=== PATIENT | male | born 1945 | race Caucasian/White ===

== ENCOUNTER 2018-12-25 12:02 | Observation (INO) ==
[2018-12-25] MEDS ORDERED: *HR* Propofol 200 MG/20 ML VIAL IVP ONE (12:47)
[2018-12-25] MEDS ORDERED: Lidocaine -MPF 2% 2 ML VIAL ONE (13:06)
--- NOTE | 2018-12-25 15:13 | Internal Med History&Physical ---
Date of Encounter: 12/25/18 Time of Encounter: 16:00 Internal Medicine - H&P: HPI History of present illness: Mr. Adair is a 73 year old male with history of ESRD on dialysis M,W,F, peptic ulcer disease, GERD, hypertension presents as a transfer from [facility] ED for acute anemia workup. Patient was sent to [facility] from dialysis as he had hemoglobin of 6.5 this AM, and patient baseline last week was 13.0. Patient denies any acute bleeding episodes. He did have a brief episode of SOB a few d ays ago. Denies chest pain, dizziness, melena, hematochezia, hematemesis, abdominal pain, diarrhea. He did have a two day episode of light pink hematuria that has since resolved. In [facility] ED, Hemoglobin was low at 6.9 with MCV normal at 95.6, INR 1.06, he was hemodynamically stable. FOBT was positive. Urinalysis was positive for trace hemoglobin, large leukocyte esterase, positive for nitrites, with 2+ bacteria. A high-sensitive troponin was negative. EKG did not show any ST/T wave changes. He was given 1 unit PRBC, IV Protonix, and also a dose of Rocephin. Past Med Surg Social Fam HX - Past Medical History Medical history: dialysis, GERD, hypertension Psychiatric history: no psych history - Social History Smoking Status: Former smoker Smokeless Tobacco Status: No Alcohol use: none Drug use: none - Family History Mother Hx Family Cancer: Yes Hx Family Endocrine Disorder: Yes Sister Hx Family Cardiac Disorders: Yes Hx Family Endocrine Disorder: Yes Internal Medicine - H&P: Meds Allergy/AdvReac Type Severity Reaction Status Date / Time No Known Allergies Allergy Verified 12/25/18 15:50 All Systems PM: A 10-system review of systems was performed and is negative for pertinent findings except as documented above in the HPI. - Constitutional Constitutional: fatigue, no anorexia, no excessive sweating, no night sweats, no weight loss - EENT Eyes: no blurry vision Nose, mouth and throat: no epistaxis, no mouth lesions, no neck mass - Cardiovascular Cardiovascular ROS IM: no chest pain, no lightheadedness, no palpitations - Respiratory Respiratory: dyspnea, no hemoptysis, no wheezing - Gastrointestinal Gastrointestinal: no change in stool character, no coffee ground emesis - Genitourinary Genitourinary ROS male: hematuria (2 days, light pink) - Musculoskeletal Musculoskeletal ROS IM: no arthralgias, no atrophy, no deformity - Integumentary Integumentary IM: no non-healing lesions, no rash, no skin ulcer - Neurological Neurological ROS: no tingling, no tremor(s), no weakness - Psychiatric Psychiatric: no confusion, no depression - Hematologic/Lymphatic Hematologic/Lymphatic: no easy bleeding - Allergic/Immunologic Allergic/Immunologic: no tongue swelling - Constitutional Vitals: Temp Pulse Resp BP Pulse Ox 97.9 F 79 16 165/77 97 12/25/18 13:39 12/25/18 13:39 12/25/18 13:39 12/25/18 13:39 12/25/18 13:39 General appearance: Present: A&O X 3 Exam: . - Head Head exam: Present: atraumatic, normocephalic - Eye Eye exam: Present: PERRL, conjuntiva pink, sclera anicteric Pupils: Present: PERRL - Neck Neck exam general surgery: Present: supple, trachea midline. Absent: lymphadenopathy - Respiratory Respiratory exam: Absent: accessory muscle use, rales, rhonchi, wheezes Additional comments: course breath sounds at bases. - Cardiovascular Cardiovascular exam: Present: gallop, RRR, +S1, +S2. Absent: diastolic murmur, rubs, systolic murmur - GI/Abdominal GI/Abdominal exam: Present: normal bowel sounds, soft, no peritoneal signs. Absent: distended, tenderness - Extremities Exam Extremities exam: Present: pedal edema, warm, radial pulses palpable and symmetrical. Absent: calf tenderness, cyanotic - Neurological Exam Neurological exam: Present: CN II-XII intact, oriented X3, no focal deficits. Absent: pronater drift, facial droop, speech deficit - Skin Skin exam: Present: dry, intact Internal Med - H&P Results - Labs CBC & Chem 7: 12/25/18 15:57 - Assessment and Plan (1) Acute blood loss anemia Current Visit: Yes Status: Acute Assessment and plan: Suspect upper GI bleed. He denies any change in stools but report given for transfer is that patient had tarry stools. Fecal occult test positive prior to arrival. Currently symptom free. Received 1 unit PRBC at [facility] prior to transfer. Hemodynamicaly stable. Cycle H&H Consult GI Protonix drip. (2) End stage renal disease Current Visit: Yes Status: Acute Assessment and plan: Patient receives dialysis M,W,F. Missed today's dose because of acute anemia. Now patient H&H appears more stable after 1 unit PRBC. Currently 8.1 (was 6.3 at dialysis). Breath sounds coarse, will like to obtain chest x-ray to better see if there is fluid overload picture while patient might need IV fluids. Consult Nephrology. Diuresis if needed for fluid overload until next dialysis session. Patient does make urine and has a chronic cath. (3) Urinary tract infection Current Visit: Yes Status: Acute Assessment and plan: As seen in [facility] labs. Had episode of light hematuria few days ago now reso lved. Patient has chronic Tierney in, known ESRD. Will continue Rocephin. Qualifiers: Urinary tract infection type: site unspecified Hematuria presence: with hematuria Qualified Code(s): N39.0 - Urinary tract infection, site not specified; R31.9 - Hematuria, unspecified (4) Hypertension Current Visit: Yes Status: Acute Assessment and plan: Resume home medications if endoscopy is negative. IV antihypertensives for now. Qualifiers: Hypertension type: essential hypertension Qualified Code(s): I10 - Essential (primary) hypertension (5) GERD (gastroesophageal reflux disease) Current Visit: Yes Status: Acute Qualifiers: Esophagitis presence: esophagitis presence not specified Qualified Code(s): K21.9 - Gastro-esophageal reflux disease without esophagitis (6) DVT prophylaxis Current Visit: Yes Status: Acute Assessment and plan: SCDs - Time Spent With Patient Total time spent is greater than 50% in coordination of care (as documented) at patient's floor/unit and/or counseling patient:
[2018-12-25] MEDS ORDERED: Naloxone 0.4 MG/ML INJ IVP PRN (15:14)
[2018-12-25 16:17] LABS: Basophils % 0.4 %; Eosinophils # 0.1 K/mcL (0.0-0.6); Eosinophils % 1.9 %; Hematocrit 24.5 % (37.5-50.1); Hemoglobin 8.1 g/dL (12.9-16.9); Immature Granulocytes % 1.2 % (0-4); Lymphocytes % 21.5 %; Mean Corpuscular HGB Conc 33.1 g/dL (31.6-35.5); Mean Corpuscular Volume 93.9 fL (83.0-100.0); Monocytes # 0.6 K/mcL (0.0-1.3); Monocytes % 12.8 %; Platelet Count 154 K/mcL (140-400); Red Blood Count 2.61 M/mcL (4.19-5.50); Segmented Neutrophils % 62.2 %; White Blood Count 4.8 K/mcL (4.3-11.1)
[2018-12-25 16:23] LABS: INR 1.1; Prothrombin Time 12.5 Seconds (9.4-12.1)
[2018-12-25 17:01] LABS: Calcium 9.1 mg/dL (8.6-10.3)
[2018-12-25 17:02] LABS: Magnesium 1.9 mg/dL (1.6-2.6); Phosphorous 4.4 mg/dL (2.7-4.5)
[2018-12-25] MEDS: Pantoprazole 40 MG in 0.9 % Sodium Chloride Mini Bag 100 ML IVC SCH (18:48)
[2018-12-25 19:45] LABS: Hepatitis B Surface Antibody 26.83 mIU/mL
[2018-12-25 19:57] LABS: Hepatitis B Surface Antigen Nonreactive (Nonreactive)
[2018-12-25] MEDS ORDERED: Ondansetron ODT 4 MG TAB.RAPDIS PO PRN (21:19)
[2018-12-25] MEDS ORDERED: Nitroglycerin 0.4 MG TAB.SUBL SL PRN (21:19)
[2018-12-25 22:08] LABS: Hematocrit 23.6 % (37.5-50.1); Hemoglobin 7.7 g/dL (12.9-16.9)
--- NOTE | 2018-12-25 22:43 | Anesthesia Evaluation PreOp ---
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 Any Significant HX Other Medical History: Renal (dialysis MWF - missed today (Sunday12-25-18) due to acute anemia), Bleeding (episode of hematuria; drastic change in hemaglobin suggestive of bleeding), GERD (peptic ulcer disease), Other (UTI) Anesthesia History: No Prior Anesthetic Complications, Past Anesthesia (fistula placement) Alcohol Use: none Drug use: none Medications and Allergies Calcium Acetate [Phos-LO] 1,334 mg PO TIDWM 12/25/18 [History] Carvedilol [Coreg] 6.25 mg PO BID 12/25/18 [History] Cholecalciferol (D-3) [Vitamin D] 1,000 unit PO DAILY 12/25/18 [History] Clopidogrel [Plavix] 75 mg PO DAILY 12/25/18 [History] Lisinopril [Zestril] 20 mg PO DAILY 12/25/18 [History] Nitroglycerin [Nitrostat] 0.4 mg SL Q5M PRN MDD [id number] CALL 911 12/25/18 [History] Ondansetron HCl [Zofran] 4 mg PO Q4-6H PRN 12/25/18 [History] Simvastatin [Zocor] 40 mg PO HS 12/25/18 [History] Allergy/AdvReac Type Severity Reaction Status Date / Time No Known Allergies Allergy Verified 12/25/18 20:29 - Meds/Allergy Pre-op Review Medications Reviewed: Yes Allergies Reviewed: Yes Beta Blockers on Current Med List: Yes (coreg) Anesthesia Results - Labs 12/25/18 21:35 12/25/18 15:57 - Imaging Chest x-ray: report reviewed (no acute process) Anesthesia Exam Last Vital Signs Temp 98.7 F 12/25/18 20:34 Pulse 73 12/25/18 20:34 Resp 17 12/25/18 20:34 BP 128/60 12/25/18 20:34 Pulse Ox 98 12/25/18 20:34 Weight: 67 kg - HEENT Pupil (Motor): Pupils equal, EOMI Mallampati: II Teeth: Edentulous Oral Opening: Greater than 3 - 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
[2018-12-26] MEDS: Pantoprazole 40 MG in 0.9 % Sodium Chloride Mini Bag 100 ML IVC SCH ×3 (00:01→05:36)
[2018-12-26 04:02] LABS: Basophils % 0.4 %; Eosinophils # 0.1 K/mcL (0.0-0.6); Eosinophils % 2.1 %; Hematocrit 22.8 % (37.5-50.1); Hemoglobin 7.6 g/dL (12.9-16.9); Immature Granulocytes % 0.8 % (0-4); Lymphocytes # 1.2 K/mcL (0.6-4.6); Lymphocytes % 24.7 %; Mean Corpuscular HGB Conc 33.3 g/dL (31.6-35.5); Mean Corpuscular Hemoglobin 30.5 pg (28.0-33.3); Mean Corpuscular Volume 91.6 fL (83.0-100.0); Mean Platelet Volume 10.4 fL (9.4-12.4); Monocytes # 0.7 K/mcL (0.0-1.3); Monocytes % 13.9 %; Neutrophils # 2.8 K/mcL (1.6-8.9); Platelet Count 143 K/mcL (140-400); Red Blood Count 2.49 M/mcL (4.19-5.50); Red Cell Distribution Width 17.2 % (11.5-14.5); Segmented Neutrophils % 58.1 %; White Blood Count 4.8 K/mcL (4.3-11.1)
[2018-12-26 04:19] LABS: Calcium 8.5 mg/dL (8.6-10.3); Potassium 3.7 mEq/L (3.5-5.1)
[2018-12-26] MEDS ORDERED: 0.9 % Sodium Chloride 250 ML IVC PRN (07:13)
[2018-12-26] MEDS ORDERED: 0.9 % Sodium Chloride 1,000 ML PRIME SCH (07:15)
[2018-12-26] MEDS: cefTRIAXone 1,000 MG in Water for inj. (sterile) 20 ML 10 ML IVP SCH (08:32)
[2018-12-26] MEDS: Calcium Acetate 667 MG CAPSULE PO SCH ×3 (08:33→17:18)
[2018-12-26] MEDS: Cholecalciferol (D-3) 1,000 UNIT TABLET PO SCH (08:33)
--- NOTE | 2018-12-26 08:43 | Internal Med Progress Note ---
<Adrianna Dominguez - Last Filed: 12/26/18 17:48> Hospitalist Progress Note - Encounter Date of Encounter: 12/26/18 - Exam Vitals: Temp Pulse Resp BP Pulse Ox 97.7 F 80 18 170/87 98 12/26/18 17:02 12/26/18 15:35 12/26/18 17:02 12/26/18 17:02 12/26/18 15:05 - Assessment and Plan (1) Acute blood loss anemia Current Visit: Yes Status: Acute (2) End stage renal disease Current Visit: Yes Status: Chronic (3) Urinary tract infection Current Visit: Yes Status: Acute (4) Hypertension Current Visit: Yes Status: Chronic (5) GERD (gastroesophageal reflux disease) Current Visit: Yes Status: Acute (6) DVT prophylaxis Current Visit: Yes Status: Acute - Time Spent with Patient Total time spent is greater than 50% in coordination of care (as documented) at patient's floor/unit and/or counseling patient: Internal Medicine: Result - Labs CBC & Chem 7: 12/26/18 10:02 12/26/18 03:48 Labs: Short CBC 12/25/18 12/26/18 12/26/18 Range/Units 21:35 03:48 10:02 WBC 4.8 (4.3-11.1) K/mcL Hgb 7.7 L 7.6 L 8.1 L (12.9-16.9) g/dL Hct 23.6 L 22.8 L 24.4 L (37.5-50.1) % Plt Count 143 (140-400) K/mcL Neutrophils # 2.8 (1.6-8.9) K/mcL BMP 12/26/18 03:48 Sodium 138 Potassium 3.7 Chloride 105 Carbon Dioxide 24 BUN 31 H Creatinine 3.49 H Glucose 87 Calcium 8.5 L - ABG Interpretation ABG results: PT/INR, D-dimer PT 12.5 Seconds (9.4-12.1) H 12/25/18 15:57 - Impressions Impressions Chest X-Ray 12/25/18 17:17 IMPRESSION: No acute process. D/ / Sabas Medina MD / Sabas Medina MD Interpreting Provider: Sabas Medina MD Consult Discharge Plan - Plan Referrals: Nani Calvillo, EMBROIDERY WORKER [Primary Care Provider] - - Attending Attestation I examined this patient and my medical decision-making was reviewed with the Resident Physician. I agree with the documented findings, disposition and treatment plan as described except to the extent set forth below. No acute events. EGD pending. Plan for dialysis today after EGD and give 1 unit PRBC during HD. <Gi Narvaez - Last Filed: 12/26/18 19:59> Hospitalist Progress Note - Encounter Date of Encounter: 12/26/18 Time of Encounter: 08:43 - Subjective Interval History: This is a 73-year-old male with past medical history of ESRD on hemodialysis (MWF), peptic ulcer disease, GERD, hypertension who initially presented has a transfer from [facility] ED due to hematuria for an anemia workup. Patient was seen and examined at bedside this morning. He is currently in no acute distress. Vital signs are stable. Otherwise he denies any chest pain, difficulty breathing, palpitations, wheezing. He has no acute complaints at this time. - Exam Vitals: Temp Pulse Resp BP Pulse Ox 98.3 F 72 18 121/62 97 12/26/18 07:06 12/26/18 07:06 12/26/18 07:06 12/26/18 07:06 12/26/18 07:06 Exam: GEN: Vitals stable. No acute distress. AAOx3 HEENT: Atraumatic, Normocephalic, PERRLA, EOMI NECK: Supple, no lymphadenopathy, no JVD CARDIAC: RRR, s1 and s2 present, no murmurs, rubs, gallops PULM: CTAB, not in respiratory distress, no wheezes, rales, crackles, rhonchi ABD: Soft, non-tender, non-distended, no guarding or rebound tenderness. Bowel sounds present; suprapubic catheter in place EXT: No peripheral edema. No calf tenderness, cyanosis, clubbing NEURO: CN 2-12 grossly intact. No focal neurologic deficits. Follows commands PSYCH: Appropriate mood and affect - Assessment and Plan (1) Acute blood loss anemia Current Visit: Yes Status: Acute Assessment and Plan: This is a 73-year-old male with past medical history of ESRD on hemodialysis (MWF), peptic ulcer disease, GERD, hypertension who initially presented as a transfer from [facility] ED for further anemia workup. - Noted to have hemoglobin = 6.5 after hemodialysis - Baseline hemoglobin = 13.0 - Patient denies having any acute bleeding episodes. Does note that he did have some light pink hematuria a few days ago - Fecal occult blood test was positive. - EKG did not show any acute ST changes. Troponin was negative. - Patient was given 1 unit of PRBCs at [facility] ED and transferred here. Patient was also started on IV Protonix - Hemoglobin = 7.6 this morning. - Patient was given another unit of PRBCs today. - EGD (12/26/18): Grade a reflux esophagitis, 2 cm hiatal hernia, gastritis, nonbleeding gastric ulcer with no stigmata of bleeding PLAN: - Gastroenterology on board. Recommendations appreciated. - Continue with Protonix twice a day - Continue to monitor CBCs. Transfuse as needed - Plan for colonoscopy tomorrow. Nothing by mouth at midnight. Otherwise clear liquid diet without red or purple liquids until then. (2) End stage renal disease Current Visit: Yes Status: Chronic Assessment and Plan: Patient has history of end-stage renal disease on hemodialysis on Sunday, Sunday, Sunday. - Initially presented due to acute anemia after hemodialysis - Patient states he does make urine, and has a chronic suprapubic catheter - BUN/CT r = 31/3.49 PLAN: - Nephrology on board. Recommendations appreciated - Hemodialysis done today - Strict I's and O's - Daily weights - Renally dose medications, and avoid nephrotoxic agents - Renal diet when patient is eating - If no evidence of acute GI bleed, patient may need EPO; may follow up with outpatient nephrology (3) Urinary tract infection Current Visit: Yes Status: Acute Assessment and Plan: Urinalysis at [facility] ED showed trace hemoglobin, large leukocyte esterase, positive nitrites and 2+ bacteria - Patient has chronic indwelling suprapubic catheter and known ESRD - Was treated with one dose of Rocephin - Patient currently complaining of no pain. He remains afebrile without leukocytosis PLAN: - Continue treatment with Rocephin 1 g daily for a total of 7 days. - Monitor urine output, and monitor for hematuria - Continue with hemodialysis (4) Hypertension Current Visit: Yes Status: Chronic Assessment and Plan: History of hypertension - Blood pressures have remained elevated, but stable during admission PLAN: - Continue with IV antihypertensives - Hold IV antihypertensives prior to dialysis - Resume by mouth antihypertensives with negative colonoscopy tomorrow (5) GERD (gastroesophageal reflux disease) Current Visit: Yes Status: Acute Assessment and Plan: History of GERD - EGD (12/26/18): Grade a reflux esophagitis, 2 cm hiatal hernia, gastritis, nonbleeding gastric ulcer with no stigmata of bleeding - Patient has no acute complaints at this time PLAN: - Continue with Protonix twice a day - Zofran when necessary (6) DVT prophylaxis Current Visit: Yes Status: Acute Assessment and Plan: PLAN: - SCDs - Time Spent with Patient Total time spent is greater than 50% in coordination of care (as documented) at patient's floor/unit and/or counseling patient: Internal Medicine: Result - Labs CBC & Chem 7: 12/26/18 10:02 12/26/18 03:48 Labs: Short CBC 12/25/18 12/25/18 12/26/18 Range/Units 15:57 21:35 03:48 WBC 4.8 4.8 (4.3-11.1) K/mcL Hgb 8.1 L 7.7 L 7.6 L (12.9-16.9) g/dL Hct 24.5 L 23.6 L 22.8 L (37.5-50.1) % Plt Count 154 143 (140-400) K/mcL Neutrophils # 3.0 2.8 (1.6-8.9) K/mcL BMP 12/25/18 12/26/18 15:57 03:48 Sodium 138 138 Potassium 4.0 3.7 Chloride 104 105 Carbon Dioxide 26 24 BUN 30 H 31 H Creatinine 3.27 H 3.49 H Glucose 86 87 Calcium 9.1 8.5 L - ABG Interpretation ABG results: PT/INR, D-dimer PT 12.5 Seconds (9.4-12.1) H 12/25/18 15:57 - Impressions Impressions Chest X-Ray 12/25/18 17:17 IMPRESSION: No acute process. D/ / Sabas Medina MD / Sabas Meidna MD Interpreting Provider: Sabas Medina MD <Adrianna Dominguez - Last Filed: 12/26/18 17:48> (3) Urinary tract infection Qualifiers: Urinary tract infection type: site unspecified Hematuria presence: with hematuria Qualified Code(s): N39.0 - Urinary tract infection, site not specified; R31.9 - Hematuria, unspecified (4) Hypertension Qualifiers: Hypertension type: essential hypertension Qualified Code(s): I10 - Essential (primary) hypertension (5) GERD (gastroesophageal reflux disease) Qualifiers: Esophagitis presence: esophagitis presence not specified Qualified Code(s): K21.9 - Gastro-esophageal reflux disease without esophagitis <Gi Narvaez - Last Filed: 12/26/18 19:59> (3) Urinary tract infection Qualifiers: Urinary tract infection type: site unspecified Hematuria presence: with hematuria Qualified Code(s): N39.0 - Urinary tract infection, site not specified; R31.9 - Hematuria, unspecified (4) Hypertension Qualifiers: Hypertension type: essential hypertension Qualified Code(s): I10 - Essential (primary) hypertension (5) GERD (gastroesophageal reflux disease) Qualifiers: Esophagitis presence: esophagitis presence not specified Qualified Code(s): K21.9 - Gastro-esophageal reflux disease without esophagitis
[2018-12-26 10:19] LABS: Hematocrit 24.4 % (37.5-50.1); Hemoglobin 8.1 g/dL (12.9-16.9)
--- NOTE | 2018-12-26 11:03 | Gastroenterology Consult Note ---
<BlueSabas olivares Marcelo - Last Filed: 12/26/18 10:55> Date of Encounter: 12/26/18 Time of Encounter: 09:50 - Assessment and plan (1) Anemia Status: Acute Assessment and plan: Hgb 6.5 during dialysis yesterday, and Hgb around 13 last week. He was given one unit PRBC prior to transfer. Hgb 8.1 on admission here and today Hgb 7.6. One unit PRBC ordered today. Continue to monitor CBC and transfuse PRBC as needed. Plan for EGD today to r/o esophagitis, gastritis, duodenitis, PUD, MW tear, or AVM. Plan for colonoscopy tomorrow. After EGD, clear liquid diet today, no red or purple. NPO at midnight. If unable tolerate NuLytely please use MiraLAX prep. If not clear by 6 AM, give 2 tap water enemas. Qualifiers: Anemia type: unspecified type Qualified Code(s): D64.9 - Anemia, unspecified (2) End stage renal disease Status: Acute - Time Spent With Patient Total time spent is greater than 50% in coordination of care (as documented) at patient's floor/unit and/or counseling patient: GI History of Present Illness - Data of Consult Patient: new to practice Consult date: 12/26/18 Requesting Physician: Cindy Nelson - Consult Narrative Reason for consult: Anemia History of present illness: Mr. Adair is a 73 year old male with PMHx of ESRD on dialysis Sunday//Sunday, GERD, HTN was transferred from [facility] for evaluation of anemia. Hgb 6.5 during dialysis yesterday, and Hgb around 13 last week. He was given one unit PRBC prior to transfer. Hgb 8.1 on admission here and today Hgb 7.6. One unit PRBC ordered today. He denies fever, chills, chest pain, shortness of breath (reports one episode a few days ago), abdominal pain, nausea, vomiting, melena, or hematochezia. Procedures: None NSAIDs: None Anticoagulation: Plavix Past Med Surg Social Fam HX - Past Medical History Medical history: dialysis, GERD, hypertension Psychiatric history: no psych history - Social History Smoking Status: Former smoker Smokeless Tobacco Status: No Alcohol use: none Drug use: none - Family History Mother Hx Family Cancer: Yes Hx Family Endocrine Disorder: Yes Sister Hx Family Cardiac Disorders: Yes Hx Family Endocrine Disorder: Yes - Gastrointestinal Gastrointestinal: Present: as per HPI - Constitutional Constitutional: as per HPI - EENT Eyes: as per HPI Ears: Present: as per HPI Nose, mouth and throat: Present: as per HPI - Cardiovascular Cardiovascular ROS: Present: as per HPI - Respiratory Respiratory IM: Present: as per HPI - Genitourinary Genitourinary: Absent: change in color, Urinary frequency - Neurological ROS Neurological GI: Present: as per HPI - Hematologic/Lymphatic Hematologic/Lymphatic pediatric: Present: as per HPI - Musculoskeletal Musculoskeletal ROS GI: Present: as per HPI - Integumentary Integumentary GI: Present: as per HPI - Psychiatric ROS Psychiatric GI: Present: as per HPI - Endocrine Endocrine IM: Present: as per HPI - Constitutional Vitals: Temp Pulse Resp BP Pulse Ox 98.3 F 72 18 121/62 97 12/26/18 07:06 12/26/18 07:06 12/26/18 07:06 12/26/18 07:06 12/26/18 07:06 General appearance: Present: cooperative, A&O X 3, no acute distress, answers questions appropriately - Head Head exam: Present: atraumatic, normocephalic - Eye Eye exam: Present: normal appearance, sclera anicteric - ENT ENT exam: Present: mucous membranes dry - Neck Neck exam general surgery: Present: normal inspection, trachea midline - Respiratory Respiratory exam: Present: CTAB. Absent: rales, rhonchi - Cardiovascular Cardiovascular exam: Present: RRR, +S1, +S2 - GI/Abdominal GI/Abdominal exam: Present: soft, no peritoneal signs. Absent: distended, firm, guarding, tenderness - Rectal Rectal exam: Present: deferred - Extremities Exam Extremities exam: Present: warm - Neurological Exam Neurological exam: Present: no focal deficits - Psychiatric Psychiatric exam: Present: normal affect, normal mood - Skin Skin exam: Present: dry, intact, normal color, warm Results - Labs CBC & Chem 7: 12/26/18 10:02 12/26/18 03:48 Labs: Last Result 12/26/18 03:48 Calcium 8.5 L Entire Visit 12/26/18 12/26/18 03:48 10:02 Hgb 7.6 L 8.1 L Hct 22.8 L 24.4 L - ABG ABG results: PT/INR, D-dimer PT 12.5 Seconds (9.4-12.1) H 12/25/18 15:57 - Impressions Impressions Chest X-Ray 12/25/18 17:17 IMPRESSION: No acute process. D/ / Sabas Medina MD / Sabas Medina MD Interpreting Provider: Sabas Medina MD Consult Discharge Plan - Plan Instructions: Gastroesophageal Reflux Disease (GEN), Anemia (GEN), End-Stage K idney Disease (GEN) Referrals: [facility] [Provider Group] (Please follow up on your normal HD days at [facility] on Sunday, Sunday and Sunday's. Thank you!) [facility] [Provider Group] Nani Calvillo, QUALITY CONTROL LEAD [Primary Care Provider] - (web request sent. If you do not hear from the office please call and schedule. Thank you!) Prescriptions: Sucralfate [Carafate] 1 gm PO QIDAC 30 Days #120 tablet cephALEXin [Keflex] 500 mg PO BID 5 Days #10 capsule Pantoprazole Sodium 20 mg PO DAILY 30 Days #30 tablet. <Fabricio Smart - Last Filed: 12/30/18 05:22> Date of Encounter: 12/26/18 - Time Spent With Patient Total time spent is greater than 50% in coordination of care (as documented) at patient's floor/unit and/or counseling patient: GI History of Present Illness - Data of Consult Requesting Physician: Adrianna Dominguez MD - Consult Narrative History of present illness: Mr. Adair is a 73 year old male - Constitutional Vitals: Temp Pulse Resp BP Pulse Ox 97.7 F 76 18 164/73 96 12/28/18 11:57 12/28/18 11:57 12/28/18 11:57 12/28/18 11:57 12/28/18 11:57 Results - Labs CBC & Chem 7: 12/28/18 06:09 12/28/18 06:09 - ABG ABG results: PT/INR, D-dimer PT 12.5 Seconds (9.4-12.1) H 12/25/18 15:57 - Attending Attestation I have personally performed a face to face evaluation on this patient. I have reviewed and agree with the care plan. History and Exam by me shows: patient was transferred from [facility] with dark stools and anemia. Has been on HD for about 14 years. No history of any endoscopy. Will plan EGD and then colonoscopy. We discussed this with his family and they are agreeable.
--- NOTE | 2018-12-26 11:39 | Nephrology Consult Note ---
Date of Encounter: 12/26/18 Time of Encounter: 08:35 Assessment and Plan (1) End stage renal disease Current Visit: Yes Status: Chronic ESRD on thrice weekly hemodialysis every Sunday/Sunday/Sunday, and he missed dialysis yesterday according to the patient. This is the first time that I've met the pt and his outside nephrology provider(s) no longer round on the patient's when admitted at [facility]. The patient's outside/independent dialysis unit is not open today, so I will have to request medical records tomorrow. Because the patient missed dialysis yesterday, I recommend he resume it today after his endoscopy. He knows very little about his dialysis and etiology of his end-stage renal disease, but he thinks he has been on dialysis for 10-15 years. His previous labor training manager was Dr. Ashley until he retired he said. He has a suprapubic catheter, and still makes considerable amounts of urine, he affirmed. He said he dialyzes for proximally 3 hours per treatment in [place], [place], at a dialysis unit by the [facility], which is consistent with the JOSE J. Follow standard ESRD approach while he is admitted: Strict I's and O's, daily weights, renal dosing, avoidance of nephrotoxic agents to help protect his residual renal function and renal diet. There was medical necessity for me as the on-call labor training manager at [facility] to see this very pleasant pt. Thank you for consulting the [facility] group. My colleague Dr. Llamas will be environmental health physician tomorrow, and I will provide a thorough handoff. (2) Acute blood loss anemia Current Visit: Yes Status: Acute Appreciate GI and the recommendations. If there is not a profuse GI bleed, it may suggest that he needs more EPO in the outpatient setting. (3) Hypertension Current Visit: Yes Status: Chronic Hold antihypertensive medications before dialysis, which will help prevent any intradialytic hypotension. Qualifiers: Hypertension type: essential hypertension Qualified Code(s): I10 - Essential (primary) hypertension (4) Hyperphosphatemia Current Visit: Yes Status: Chronic Whenever his diet is advanced, I recommend using his phosphorus binder to help control serum phosphorus between 3.5 to 5.5 in the setting of ESRD. History of Present Illness - Reason for Consult Consult date: 12/26/18 end stage renal disease Requesting physician: Adrianna Dominguez - Chief Complaint ESRD and missed HD - History of Present Illness Calderon Adair is a very pleasant gentleman with a pmh of ESRD on HD MWF, urinary retention with chronic suprapubic catheter, HTN, HLD and el al who presented from his outside/independent dialysis unit for findings of a low albeit asymptomatic low Hgb. He did not affirm noticing any nausea, vomiting, or visible blood. He did report that he has chronic dark stools, but noticed no recent changes. He did not affirm chest pain, shortness of breath, or abdominal pain. He does not take NSAIDs. He typically dialyzes with the former [facility] unit, he said and missed his dialysis yesterday. The [facility] group was consulted to help resume his dialysis (of note his outside labor training manager group no longer provides coverage to round on their patients when admitted at [facility]). When I asked him what was the cause of his renal failure, he said he did not know. He described that his dialysis treatments are proximally 3 hours per treatment, and he does not know his dry weight. He uses left upper extremity AV fistula, and he denied having any recent surgeries or procedures on it. Family history: He did not affirm having any first-degree relatives with a history of ESRD Past Med Surg Social Fam HX - Past Medical History Medical history: dialysis, GERD, hypertension Psychiatric history: no psych history - Social History Smoking Status: Former smoker Smokeless Tobacco Status: No Alcohol use: none Drug use: none - Family History Mother Hx Family Cancer: Yes Hx Family Endocrine Disorder: Yes Sister Hx Family Cardiac Disorders: Yes Hx Family Endocrine Disorder: Yes Medications and Allergies Calcium Acetate [Phos-LO] 1,334 mg PO TIDWM 12/25/18 [History] Carvedilol [Coreg] 6.25 mg PO BID 12/25/18 [History] Cholecalciferol (D-3) [Vitamin D] 1,000 unit PO DAILY 12/25/18 [History] Clopidogrel [Plavix] 75 mg PO DAILY 12/25/18 [History] Lisinopril [Zestril] 20 mg PO DAILY 12/25/18 [History] Nitroglycerin [Nitrostat] 0.4 mg SL Q5M PRN MDD [id number] CALL 911 12/25/18 [History] Ondansetron HCl [Zofran] 4 mg PO Q4-6H PRN 12/25/18 [History] Simvastatin [Zocor] 40 mg PO HS 12/25/18 [History] Allergy/AdvReac Type Severity Reaction Status Date / Time No Known Allergies Allergy Verified 12/25/18 20:29 Review of Systems All Systems: reviewed and no additional remarkable complaints except as stated Exam - Vital Signs Vital signs: Initial Vital Signs Temp Pulse Resp BP Pulse Ox 97.9 F 79 16 165/77 97 12/25/18 13:39 12/25/18 13:39 12/25/18 13:39 12/25/18 13:39 12/25/18 13:39 Vital Signs - Last 8 Hours Temp Pulse Resp BP Pulse Ox 12/26/18 07:06 98.3 F 72 18 121/62 97 12/26/18 04:41 98.0 F 72 16 128/41 98 Intake and Output 12/25/18 12/26/18 12/26/18 23:59 07:59 15:59 Intake Total 100 / 100 100 / 100 Output Total 1025 / 1025 Balance -925 / -925 100 / 100 Intake: IV Fluids 100 / 100 100 / 100 Protonix 40 MG In 0.9 % Sodium 100 / 100 100 / 100 Chloride (Mini-Bag +) 100 ML @ 20 mls/hr IVC .Q5H [facility] Rx#: [id number] Oral 0 / 0 Output: Urine 925 / 925 Catheter 100 / 100 Other: Blood Glucose* 90 - General Appearance General appearance: appears started age Exam: Thin on exam but not cachetic, with shorter body habitus EENT: ATNC, PERRL, mucous membranes moist Neck: no JVD, supple Respiratory: no kyphosis, clear Cardiology: no edema, normal S1, normal S2 - Dialysis Access Dialysis Vascular Access: Arteriovenous Fistula (left arm) thrill: Yes bruit: Yes Gastrointestinal: normoactive bowel sounds, no tenderness, no guarding Additional Comments: He has a suprapubic catheter Integumentary: no rash, warm and dry Neurologic: no focal deficit, no asterixis, alert and oriented x3 Musculoskeletal: no deformities, no erythema, no cyanosis, no clubbing Psychiatric: mood/affect appropriate, cooperative Results - Lab Results 12/26/18 10:02 12/26/18 03:48 Most recent lab results 12/26/18 03:48 Calcium 8.5 L Consult Discharge Plan - Plan Referrals: Nani Calvillo CNP [Primary Care Provider] -
[2018-12-26] MEDS ORDERED: Lidocaine -MPF 2% 2 ML VIAL ONE (11:51)
[2018-12-26] MEDS ORDERED: *HR* Propofol 200 MG/20 ML VIAL IVP ONE (11:51)
[2018-12-26] MEDS ORDERED: 0.9 % Sodium Chloride 1,000 ML ONE (16:35)
[2018-12-26] MEDS ORDERED: SODIUM CHLORIDE/NAHCO3/KCL/PEG 4,000 ML SOLN.RECON PO ONE (17:00)
[2018-12-26] MEDS: Pantoprazole 40 MG VIAL IVP SCH (17:18)
[2018-12-27] MEDS: Pantoprazole 40 MG VIAL IVP SCH ×2 (06:07→16:25)
[2018-12-27] MEDS ORDERED: 0.9 % Sodium Chloride 250 ML IVC PRN (06:22)
[2018-12-27 06:24] LABS: Basophils % 0.5 %; Eosinophils # 0.1 K/mcL (0.0-0.6); Hematocrit 27.5 % (37.5-50.1); Hemoglobin 9.2 g/dL (12.9-16.9); Immature Granulocytes % 0.8 % (0-4); Lymphocytes # 0.7 K/mcL (0.6-4.6); Lymphocytes % 18.2 %; Mean Corpuscular HGB Conc 33.5 g/dL (31.6-35.5); Mean Corpuscular Hemoglobin 30.2 pg (28.0-33.3); Mean Corpuscular Volume 90.2 fL (83.0-100.0); Mean Platelet Volume 10.3 fL (9.4-12.4); Monocytes # 0.5 K/mcL (0.0-1.3); Monocytes % 13.6 %; Neutrophils # 2.6 K/mcL (1.6-8.9); Platelet Count 141 K/mcL (140-400); Red Blood Count 3.05 M/mcL (4.19-5.50); Red Cell Distribution Width 16.6 % (11.5-14.5); Segmented Neutrophils % 64.9 %
[2018-12-27 06:37] LABS: Calcium 8.5 mg/dL (8.6-10.3); Potassium 3.7 mEq/L (3.5-5.1)
--- NOTE | 2018-12-27 08:13 | Anesthesia Evaluation PreOp ---
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 MACHINE TENDER History: Denies Any Significant HX Other Medical History: Renal (ESRD dialysis MWF), Other (hematuria, anemia) Anesthesia History: No Prior Anesthetic Complications, Past Anesthesia (EGD 12/26/2018, fistula placement) Alcohol Use: none Drug use: none Medications and Allergies Calcium Acetate [Phos-LO] 1,334 mg PO TIDWM 12/25/18 [History] Carvedilol [Coreg] 6.25 mg PO BID 12/25/18 [History] Cholecalciferol (D-3) [Vitamin D] 1,000 unit PO DAILY 12/25/18 [History] Clopidogrel [Plavix] 75 mg PO DAILY 12/25/18 [History] Lisinopril [Zestril] 20 mg PO DAILY 12/25/18 [History] Nitroglycerin [Nitrostat] 0.4 mg SL Q5M PRN MDD [id number] CALL 911 12/25/18 [History] Ondansetron HCl [Zofran] 4 mg PO Q4-6H PRN 12/25/18 [History] Simvastatin [Zocor] 40 mg PO HS 12/25/18 [History] Allergy/AdvReac Type Severity Reaction Status Date / Time No Known Allergies Allergy Verified 12/25/18 20:29 - Meds/Allergy Pre-op Review Medications Reviewed: Yes Allergies Reviewed: Yes Beta Blockers on Current Med List: Yes (coreg) Anesthesia Results - Labs 12/27/18 06:08 12/27/18 06:08 - Imaging EKG: report reviewed Anesthesia Exam Vital Signs/O2 Sat/Glucose, Most Recent Temp Pulse Resp BP Pulse Ox 98.0 F 74 19 143/61 96 12/27/18 07:49 12/27/18 07:49 12/27/18 07:49 12/27/18 07:49 12/27/18 07:49 Blood Glucose* 85 Weight: 66 kg NPO (# of Hours): > 8 hr - HEENT Pupil (Motor): Pupils equal, EOMI Mallampati: II Teeth: Edentulous Oral Opening: Greater than 3 - BALING MACHINE TENDER LOC: Oriented - Cardiac Rhythm: Regular Murmur: Systolic - Pulmonary Breath Sounds: bilateral Clear Respiratory Effort: Symmetrical Anesthesia Assess/Plan ASA Score: 3 Level of consciousness: Cooperative, Oriented Anesthetic Plan: MAC Monitoring Plan: Standard Monitors Recovery Plan: PACU
--- NOTE | 2018-12-27 10:03 | Anesthesia Evaluation Post Op ---
Date of Encounter: 12/27/18 Time of Encounter: 10:02 - Vital Signs Vital Signs: Vital Signs/O2 Sat/Glucose, Most Recent Temp Pulse Resp BP Pulse Ox 98.4 F 78 20 149/78 98 12/27/18 08:41 12/27/18 08:41 12/27/18 08:41 12/27/18 08:41 12/27/18 08:41 Blood Glucose* 85 - Lungs Lungs: Clear Ascult./Percussion - Airway Airway: Non-obstructed - Cardiovascular Baseline Rhythm - Mental Status Mental Status: Alert & Oriented, Answers Appropriately - Pain Pain Scale: 0 - Nausea Vomiting Nausea Vomiting: Not Present - Hydration Hydration: NPO - Discharge PostOp Status: Transfer Patient to floor
--- NOTE | 2018-12-27 11:01 | Event Note ---
Date of Encounter: 12/27/18 Time of Encounter: 11:00 Colonoscopy aborted due to poor prep. Plan for colonoscopy tomorrow (Sunday). Clear liquid diet today, no red or purple. NPO at midnight. If unable tolerate NuLytely please use MiraLAX prep. If not clear by 6 AM, give 2 tap water enemas.
--- NOTE | 2018-12-27 12:14 | Internal Med Progress Note ---
<Gi Narvaez - Last Filed: 12/27/18 17:08> Hospitalist Progress Note - Encounter Date of Encounter: 12/27/18 Time of Encounter: 12:14 - Subjective Interval History: Patient was seen and examined at bedside this afternoon. He reports no acute complaints at this time. States that he has no headache, chest pain, respiratory difficulty, wheezing, palpitations, abdominal pain, nausea. Patient had just returned from colonoscopy. However colonoscopy was aborted he could preparation of the colon was unsatisfactory. There is stool in the sigmoid colon and in the transverse colon. They did note nonbleeding internal hemorrh oids. Plan for colonoscopy outpatient. Patient was then taken to dialysis today which patient tolerated without difficulty. - Exam Vitals: Temp Pulse Resp BP Pulse Ox 97.5 F L 74 16 143/71 94 12/27/18 09:54 12/27/18 09:54 12/27/18 09:54 12/27/18 09:54 12/27/18 09:54 Exam: GEN: This is a very pleasant appearing 73-year-old man resting comfortably in bed. Vitals stable. No acute distress. AAOx3 HEENT: Atraumatic, Normocephalic, PERRLA, EOMI NECK: Supple, no lymphadenopathy, no JVD CARDIAC: RRR, s1 and s2 present, no murmurs, rubs, gallops PULM: CTAB, not in respiratory distress, no wheezes, rales, crackles, rhonchi ABD: Soft, non-tender, non-distended, no guarding or rebound tenderness. Bowel sounds present. Suprapubic catheter in place EXT: No peripheral edema. No calf tenderness, cyanosis, clubbing NEURO: CN 2-12 grossly intact. No focal neurologic deficits. Follows commands PSYCH: Appropriate mood and affect - Assessment and Plan (1) Acute blood loss anemia Current Visit: Yes Status: Acute Assessment and Plan: This is a 73-year-old male with past medical history of ESRD on hemodialysis (MWF), peptic ulcer disease, GERD, hypertension who initially presented as a transfer from [facility] ED for further anemia workup. - Noted to have hemoglobin = 6.5 after hemodialysis - Baseline hemoglobin = 13.0 - Patient denies having any acute bleeding episodes. Does note that he did have some light pink hematuria a few days ago - Fecal occult blood test was positive. - EKG did not show any acute ST changes. Troponin was negative. - Patient was given 1 unit of PRBCs at [facility] ED and transferred here. Patient was also started on IV Protonix - Patient was given another unit of PRBCs on 12/26/18. - EGD (12/26/18): Grade a reflux esophagitis, 2 cm hiatal hernia, gastritis, nonbleeding gastric ulcer with no stigmata of bleeding - Hemoglobin this a.m. = 9.2 - Colonoscopy (12/27/18): Preparation of the colon was unsatisfactory. Stool in the sigmoid colon and in the transverse colon. Evidence of nonbleeding internal hemorrhoids. - Per GI Dr. Smart, patient will complete colonoscopy outpatient. PLAN: - Gastroenterology on board. Recommendations appreciated. - Continue with Protonix twice a day - Continue to monitor CBCs. Transfuse as needed for hemoglobin less than 7 or with acute bleeding - Plan for repeat colonoscopy outpatient with Dr. Smart (2) End stage renal disease Current Visit: Yes Status: Chronic Assessment and Plan: Patient has history of end-stage renal disease on hemodialysis on Sunday, Sunday, Sunday. - Initially presented due to acute anemia after hemodialysis - Patient states he does make urine, and has a chronic suprapubic catheter - BUN/Cr = 14/2.30 - Patient did have hemodialysis again today which she tolerated well PLAN: - Nephrology on board. Recommendations appreciated - Hemodialysis done today - Strict I's and O's - Daily weights - Renally dose medications, and avoid nephrotoxic agents - Renal diet when patient is eating - If no evidence of acute GI bleed, patient may need EPO; may follow up with outpatient nephrology (3) Urinary tract infection Current Visit: Yes Status: Acute Assessment and Plan: Urinalysis at [facility] ED showed trace hemoglobin, large leukocyte esterase, pos itive nitrites and 2+ bacteria - Patient has chronic indwelling suprapubic catheter and known ESRD - Was treated with one dose of Rocephin - Patient currently complaining of no pain. He remains afebrile without leukocytosis PLAN: - Continue treatment with Rocephin 1 g daily for a total of 7 days (Currently day#3). - Monitor urine output, and monitor for hematuria - Continue with hemodialysis (4) Hypertension Current Visit: Yes Status: Chronic Assessment and Plan: History of hypertension - Blood pressures have remained elevated, but stable during admission PLAN: - Continue with IV antihypertensives - Hold IV antihypertensives prior to dialysis - Resume by mouth antihypertensives (5) GERD (gastroesophageal reflux disease) Current Visit: Yes Status: Acute Assessment and Plan: History of GERD - EGD (12/26/18): Grade a reflux esophagitis, 2 cm hiatal hernia, gastritis, nonbleeding gastric ulcer with no stigmata of bleeding - Patient has no acute complaints at this time PLAN: - Continue with Protonix twice a day - Zofran when necessary (6) DVT prophylaxis Current Visit: Yes Status: Acute Assessment and Plan: PLAN: - SCDs DVT Prophylaxis: SCDs - Time Spent with Patient Total time spent is greater than 50% in coordination of care (as documented) at patient's floor/unit and/or counseling patient: less than 15 minutes Plan of Care Discussed with: patient Internal Medicine: Result - Labs CBC & Chem 7: 12/27/18 06:08 12/27/18 06:08 Labs: Short CBC 12/27/18 Range/Units 06:08 WBC 4.0 L (4.3-11.1) K/mcL Hgb 9.2 L (12.9-16.9) g/dL Hct 27.5 L (37.5-50.1) % Plt Count 141 (140-400) K/mcL Neutrophils # 2.6 (1.6-8.9) K/mcL BMP 12/27/18 06:08 Sodium 139 Potassium 3.7 Chloride 103 Carbon Dioxide 27 BUN 14 Creatinine 2.30 H Glucose 84 Calcium 8.5 L - ABG Interpretation ABG results: PT/INR, D-dimer PT 12.5 Seconds (9.4-12.1) H 12/25/18 15:57 Consult Discharge Plan - Plan Referrals: Nani Calvillo, NUCLEAR WEAPONS CUSTODIAN [Primary Care Provider] - <Adrianna Dominguez - Last Filed: 12/27/18 19:14> Hospitalist Progress Note - Encounter Date of Encounter: 12/27/18 - Exam Vitals: Temp Pulse Resp BP Pulse Ox 98.1 F 86 17 97/41 92 12/27/18 16:52 12/27/18 16:52 12/27/18 16:52 12/27/18 16:52 12/27/18 16:52 - Assessment and Plan (1) Acute blood loss anemia Current Visit: Yes Status: Acute (2) End stage renal disease Current Visit: Yes Status: Chronic (3) Urinary tract infection Current Visit: Yes Status: Acute (4) Hypertension Current Visit: Yes Status: Chronic (5) GERD (gastroesophageal reflux disease) Current Visit: Yes Status: Acute (6) DVT prophylaxis Current Visit: Yes Status: Acute - Time Spent with Patient Total time spent is greater than 50% in coordination of care (as documented) at patient's floor/unit and/or counseling patient: Internal Medicine: Result - Labs CBC & Chem 7: 12/27/18 06:08 12/27/18 06:08 Labs: Short CBC 12/27/18 Range/Units 06:08 WBC 4.0 L (4.3-11.1) K/mcL Hgb 9.2 L (12.9-16.9) g/dL Hct 27.5 L (37.5-50.1) % Plt Count 141 (140-400) K/mcL Neutrophils # 2.6 (1.6-8.9) K/mcL BMP 12/27/18 06:08 Sodium 139 Potassium 3.7 Chloride 103 Carbon Dioxide 27 BUN 14 Creatinine 2.30 H Glucose 84 Calcium 8.5 L - ABG Interpretation ABG results: PT/INR, D-dimer PT 12.5 Seconds (9.4-12.1) H 12/25/18 15:57 - Attending Attestation I examined this patient and my medical decision-making was reviewed with the Resident Physician. I agree with the documented findings, disposition and treatment plan as described except to the extent set forth below. <Gi Narvaez - Last Filed: 12/27/18 17:08> (3) Urinary tract infection Qualifiers: Urinary tract infection type: site unspecified Hematuria presence: with hematuria Qualified Code(s): N39.0 - Urinary tract infection, site not specified; R31.9 - Hematuria, unspecified (4) Hypertension Qualifiers: Hypertension type: essential hypertension Qualified Code(s): I10 - Essential (primary) hypertension (5) GERD (gastroesophageal reflux disease) Qualifiers: Esophagitis presence: with esophagitis Qualified Code(s): K21.0 - Gastro- esophageal reflux disease with esophagitis <Adrianna Dominguez - Last Filed: 12/27/18 19:14> (3) Urinary tract infection Qualifiers: Urinary tract infection type: site unspecified Hematuria presence: with hematuria Qualified Code(s): N39.0 - Urinary tract infection, site not specified; R31.9 - Hematuria, unspecified (4) Hypertension Qualifiers: Hypertension type: essential hypertension Qualified Code(s): I10 - Essential (primary) hypertension (5) GERD (gastroesophageal reflux disease) Qualifiers: Esophagitis presence: with esophagitis Qualified Code(s): K21.0 - Gastro- esophageal reflux disease with esophagitis
--- NOTE | 2018-12-27 15:23 | Nephrology Progress Note ---
Date of Encounter: 12/27/18 Time of Encounter: 12:00 - Assessment and Plan (1) Acute blood loss anemia Current Visit: Yes Status: Acute (2) Hypertension Current Visit: Yes Status: Chronic Qualifiers: Hypertension type: essential hypertension Qualified Code(s): I10 - Essential (primary) hypertension (3) End stage renal disease Current Visit: Yes Status: Chronic (4) Hyperphosphatemia Current Visit: Yes Status: Chronic Subjective Interval history: Interim noted, pt seen and examined on HD, doing well. No new complaints. Objective - Vital Signs Vital signs: Vital Signs Temp Pulse Resp BP Pulse Ox 12/27/18 14:02 98.6 F 18 148/70 12/27/18 13:45 130/58 12/27/18 13:30 117/59 12/27/18 13:15 126/55 12/27/18 13:00 124/54 12/27/18 12:45 129/62 12/27/18 12:30 128/60 12/27/18 12:15 131/60 12/27/18 12:00 129/61 12/27/18 11:45 137/61 12/27/18 11:30 148/73 12/27/18 11:15 150/87 12/27/18 11:00 149/79 12/27/18 10:45 97.6 F 16 161/77 12/27/18 09:54 97.5 F L 74 16 143/71 94 12/27/18 08:41 98.4 F 78 20 149/78 98 12/27/18 07:49 98.0 F 74 19 143/61 96 12/27/18 03:48 98.3 F 69 97 148/67 12/27/18 00:12 98.1 F 79 19 149/64 95 12/26/18 18:53 98.4 F 81 19 168/71 95 12/26/18 17:02 97.7 F 18 170/87 12/26/18 16:45 158/88 12/26/18 16:30 165/85 12/26/18 16:15 160/91 12/26/18 16:00 166/68 12/26/18 15:45 161/83 12/26/18 15:35 97.8 F 80 18 178/89 12/26/18 15:30 161/83 Intake and Output 12/26/18 12/27/18 12/27/18 23:59 07:59 15:59 Intake Total 360 / 1410 600 / 600 Output Total 2100 / 2950 500 / 2400 1900 / 2400 Balance -1740 / -1540 -500 / -1800 -1300 / -1800 Intake: Oral 360 / 360 Intake, Rinseback and Flushes 600 / 600 Output: Total Dialysis (HD) Output 1450 / 1450 1100 / 1100 Catheter 650 / 1500 500 / 1300 800 / 1300 Other: Stool Size Small Stool Consistency liquid liquid Stool Color Brown Brown # Bowel Movements 1 1 Weight 66.2 kg Hemodialysis Net Fluid Removed 500 500 (mL) Patient Weight 12/27/18 23:59 Weight 66.2 kg - Lab 12/27/18 06:08 12/27/18 06:08 Most recent lab results 12/27/18 06:08 Calcium 8.5 L Consult Discharge Plan - Plan Referrals: Nani Calvillo, UNDERGROUND SUPERVISOR [Primary Care Provider] -
[2018-12-27] MEDS: Calcium Acetate 667 MG CAPSULE PO SCH ×3 (16:14→16:22)
[2018-12-27] MEDS: cefTRIAXone 1,000 MG in Water for inj. (sterile) 20 ML 10 ML IVP SCH (16:15)
[2018-12-27] MEDS: Cholecalciferol (D-3) 1,000 UNIT TABLET PO SCH (16:15)
[2018-12-27] MEDS ORDERED: SODIUM CHLORIDE/NAHCO3/KCL/PEG 4,000 ML SOLN.RECON PO ONE (17:00)
[2018-12-28] MEDS: Pantoprazole 40 MG VIAL IVP SCH (06:37)
[2018-12-28 07:05] LABS: Basophils % 0.2 %; Eosinophils # 0.1 K/mcL (0.0-0.6); Hematocrit 28.9 % (37.5-50.1); Hemoglobin 9.3 g/dL (12.9-16.9); Immature Granulocytes % 0.4 % (0-4); Lymphocytes % 19.3 %; Mean Corpuscular HGB Conc 32.2 g/dL (31.6-35.5); Mean Corpuscular Hemoglobin 29.8 pg (28.0-33.3); Mean Corpuscular Volume 92.6 fL (83.0-100.0); Mean Platelet Volume 10.9 fL (9.4-12.4); Monocytes # 0.8 K/mcL (0.0-1.3); Monocytes % 15.4 %; Neutrophils # 3.1 K/mcL (1.6-8.9); Platelet Count 147 K/mcL (140-400); Red Blood Count 3.12 M/mcL (4.19-5.50); Red Cell Distribution Width 16.3 % (11.5-14.5); Segmented Neutrophils % 62.7 %; White Blood Count 4.9 K/mcL (4.3-11.1)
[2018-12-28 07:31] LABS: Calcium 8.4 mg/dL (8.6-10.3); Potassium 3.5 mEq/L (3.5-5.1)
[2018-12-28] MEDS: Calcium Acetate 667 MG CAPSULE PO SCH ×2 (08:47→12:26)
[2018-12-28] MEDS: Cholecalciferol (D-3) 1,000 UNIT TABLET PO SCH (08:47)
--- NOTE | 2018-12-28 08:47 | Discharge Summary ---
<Gi Narvaez - Last Filed: 12/28/18 16:35> - NOTES TO OUTPATIENT PROVIDER Notes to Outpatient Provider: - Will discharge patient on Keflex 500 mg twice a day for 5 more days, Pantoprazole 20 mg daily, Carafate 1g four times a day. - Plan for outpatient colonoscopy with gastroenterology. - Follow up outpatient Nephrology given ESRD; resume MWF hemodialysis Orders not resulted at time of discharge: Pending orders 12/25/18 15:14 Occult Blood,Stool [BF] Routine Urinalysis reflex Microscopic [URIN] Routine 12/26/18 10:02 Red Blood Cells [BBK] Stat Type and Screen [BBK] Stat 12/26/18 13:24 Surgical Pathology [PTH] Routine Date of Encounter: 12/28/18 Time of Encounter: 08:46 - Discharge Diagnosis (1) Acute blood loss anemia Priority: Primary Status: Acute (2) End stage renal disease Priority: Secondary Status: Chronic (3) Urinary tract infection Priority: Secondary Status: Acute Qualifiers: Urinary tract infection type: site unspecified Hematuria presence: with hematuria Qualified Code(s): N39.0 - Urinary tract infection, site not specified; R31.9 - Hematuria, unspecified (4) Hypertension Priority: Secondary Status: Chronic Qualifiers: Hypertension type: essential hypertension Qualified Code(s): I10 - Essential (primary) hypertension (5) GERD (gastroesophageal reflux disease) Priority: Secondary Status: Acute Qualifiers: Esophagitis presence: with esophagitis Qualified Code(s): K21.0 - Gastro- esophageal reflux disease with esophagitis (6) DVT prophylaxis Priority: Secondary Status: Acute Hospital course: Mr. Adair is a 73 year old male with past medical history significant for ESRD on hemodialysis (MWF), peptic ulcer disease, GERD, hypertension who initially presented as a transfer from [facility] emergency department for further anemia workup. Patient had been noted to have hemoglobin = 6.5 after hemodialysis. His baseline hemoglobin = 13.0. The patient denied any acute bleeding episodes. Fecal occult blood test was positive. He was transferred 2 units packed red blood cells in total during his inpatient stay. EGD was completed and showed grade a reflux esophagitis at the left antrum, a 2 cm hiatal hernia, gastritis, and a nonbleeding gastric ulcer. Patient was placed on Protonix twice a day. Colonoscopy was attempted, but patient had inadequate bowel preparation. GI will follow up with patient for outpatient colonoscopy. Nephrology did also evaluate patient, did suggest that he may need EPO. Plan to follow up with outpatient nephrology. Finally, patient noted to have urinary tract infection. He was treated with Rocephin for 3 days. He will be discharged home with Keflex twice a day for 5 more days. Patient also will be discharged home with pantoprazole 20 mg daily, and Carafate 1 g four times a day. Patient will need to follow up with nephrology and gastroenterology. He will also need a follow- up with his primary care physician early next week. Discharge discussed with: patient - Time Spent with Patient Total time spent providing and/or coordinating discharge services: Time spent: Less than 30 minutes, D/C greater than 8 hours after Admission - Discharge Medications Prescriptions: New cephALEXin [Keflex] 500 mg PO BID 5 Days #10 capsule Sucralfate [Carafate] 1 gm PO QIDAC 30 Days #120 tablet Pantoprazole Sodium 20 mg PO DAILY 30 Days #30 tablet.dr Archer Cholecalciferol (D-3) [Vitamin D] 1,000 unit PO DAILY Simvastatin [Zocor] 40 mg PO HS Ondansetron HCl [Zofran] 4 mg PO Q4-6H PRN PRN Reason: Nausea And Vomiting Nitroglycerin [Nitrostat] 0.4 mg SL Q5M PRN MDD [id number] CALL 911 PRN Reason: Chest Pain Carvedilol [Coreg] 6.25 mg PO BID Calcium Acetate [Phos-LO] 1,334 mg PO TIDWM No Action Lisinopril [Zestril] 20 mg PO DAILY Clopidogrel [Plavix] 75 mg PO DAILY Home Medications: Calcium Acetate [Phos-LO] 1,334 mg PO TIDWM 12/25/18 [History] Carvedilol [Coreg] 6.25 mg PO BID 12/25/18 [History] Cholecalciferol (D-3) [Vitamin D] 1,000 unit PO DAILY 12/25/18 [History] Clopidogrel [Plavix] 75 mg PO DAILY 12/25/18 [History] Lisinopril [Zestril] 20 mg PO DAILY 12/25/18 [History] Nitroglycerin [Nitrostat] 0.4 mg SL Q5M PRN MDD [id number] CALL 911 12/25/18 [History] Ondansetron HCl [Zofran] 4 mg PO Q4-6H PRN 12/25/18 [History] Simvastatin [Zocor] 40 mg PO HS 12/25/18 [History] Pantoprazole Sodium 20 mg PO DAILY 30 Days #30 tablet. 12/28/18 [Rx] Sucralfate [Carafate] 1 gm PO QIDAC 30 Days #120 tablet 12/28/18 [Rx] cephALEXin [Keflex] 500 mg PO BID 5 Days #10 capsule 12/28/18 [Rx] Allergies/Adverse Reactions: Allergy/AdvReac Type Severity Reaction Status Date / Time No Known Allergies Allergy Verified 12/25/18 20:29 Date of admission: 12/25/18 13:17 Primary care physician: Nani Calvillo CNP Consults: 12/25/18 15:14 Consult to Gastroenterology [CONS] Routine Consulting Provider: [facility] Reason for Consult: acute anemia Call Completed: Yes 12/25/18 16:07 Consult to Nephrology [CONS] Routine Consulting Provider: [facility] Reason for Consult: ESRD on dialysis M,W,F Call Completed: No 12/26/18 07:15 Consult to Dialysis [CONS] ONCE 12/27/18 06:30 Consult to Dialysis [CONS] ONCE Discharging clinician: Gi Narvaez Anticipated date of discharge: 12/28/18 - Constitutional Vitals: Temp Pulse Resp BP Pulse Ox 97.9 F 82 19 147/57 96 12/28/18 08:07 12/28/18 08:07 12/28/18 08:07 12/28/18 08:07 12/28/18 08:07 General appearance: Present: cooperative, A&O X 3, pleasant, no acute distress, answers questions appropriately Exam: This is a pleasant 73-year-old male who is resting comfortably at bedside in no acute distress. - Head Head exam: Present: atraumatic, normal inspection, normocephalic - Eye Eye exam: Present: EOMI. Absent: conjunctival injection - ENT ENT exam: Present: mucous membranes moist - Neck Neck exam general surgery: Present: full ROM, supple - Respiratory Respiratory exam: Present: CTAB. Absent: decreased breath sounds, rales, respiratory distress, rhonchi, wheezes - Cardiovascular Cardiovascular exam: Present: RRR, +S1, +S2 - GI/Abdominal GI/Abdominal exam: Present: normal bowel sounds, soft, no peritoneal signs. Absent: distended, guarding, tenderness - Extremities Exam Extremities exam: Present: warm, radial pulses palpable and symmetrical. Absent: calf tenderness, pedal edema - Neurological Exam Neurological exam: Present: alert, CN II-XII intact, oriented X3, no focal deficits - Psychiatric Psychiatric exam: Present: normal affect, normal mood - Patient Status Disposition: Home, Self-Care Condition: Good Functional capacity at discharge: uses cane/walker Overall status at discharge: patient is progressing back to baseline - Discharge Instructions Instructions: Gastroesophageal Reflux Disease (GEN), Anemia (GEN), End-Stage Kidney Disease (GEN) Follow Up With: [facility] [Provider Group] (Please follow up on your normal HD days at [facility] on Sunday, Sunday and Sunday's. Thank you!) [facility] [Provider Group] Nani Calvillo CNP [Primary Care Provider] - (web request sent. If you do not hear from the office please call and schedule. Thank you!) - Diet and Activity Activity: increase activity as tolerated, resume usual activities as tolerated Diet: other (Renal diet) <Adrianna Dominguez - Last Filed: 12/28/18 17:56> Orders not resulted at time of discharge: Pending orders 12/25/18 15:14 Occult Blood,Stool [BF] Routine Urinalysis reflex Microscopic [URIN] Routine 12/26/18 13:24 Surgical Pathology [PTH] Routine Date of Encounter: 12/28/18 - Discharge Diagnosis (1) Acute blood loss anemia Status: Acute (2) End stage renal disease Status: Chronic (3) Urinary tract infection Status: Acute Qualifiers: Urinary tract infection type: site unspecified Hematuria presence: with hematuria Qualified Code(s): N39.0 - Urinary tract infection, site not specified; R31.9 - Hematuria, unspecified (4) Hypertension Status: Chronic Qualifiers: Hypertension type: essential hypertension Qualified Code(s): I10 - Essential (primary) hypertension (5) GERD (gastroesophageal reflux disease) Status: Acute Qualifiers: Esophagitis presence: with esophagitis Qualified Code(s): K21.0 - Gastro- esophageal reflux disease with esophagitis (6) DVT prophylaxis Status: Acute Hospital course: Mr. Adair is a 73 year old male - Time Spent with Patient Total time spent providing and/or coordinating discharge services: Date of admission: 12/25/18 13:17 Primary care physician: Nani Calvillo CNP Consults: 12/25/18 15:14 Consult to Gastroenterology [CONS] Routine Consulting Provider: [facility] Reason for Consult: acute anemia Call Completed: Yes 12/25/18 16:07 Consult to Nephrology [CONS] Routine Consulting Provider: [facility] Reason for Consult: ESRD on dialysis M,W,F Call Completed: No 12/26/18 07:15 Consult to Dialysis [CONS] ONCE 12/27/18 06:30 Consult to Dialysis [CONS] ONCE - Constitutional Vitals: Temp Pulse Resp BP Pulse Ox 97.7 F 76 18 164/73 96 12/28/18 11:57 12/28/18 11:57 12/28/18 11:57 12/28/18 11:57 12/28/18 11:57 - Attending Attestation I examined this patient and my medical decision-making was reviewed with the Resident Physician. I agree with the documented findings, disposition and treatment plan as described except to the extent set forth below.
[2018-12-28] MEDS: cefTRIAXone 1,000 MG in Water for inj. (sterile) 20 ML 10 ML IVP SCH (08:48)
--- NOTE | 2018-12-28 09:40 | Gastroenterology Progress Note ---
Date of Encounter: 12/28/18 Time of Encounter: 09:38 - Time Spent With Patient Total time spent is greater than 50% in coordination of care (as documented) at patient's floor/unit and/or counseling patient: - Subjective Interval history: Patient admitted with anemia and dark stools. Had EGD and incomplete colonoscopy due to poor preperation. Has esophageal and a duodenal bulb ulcer as probable etiology. WE can follow him and do his colonoscopy as outpatient since there is no active bleeding. He is on hemodialysis for ESRD. Recommend patient be discharged on Pantoprazole 20 mg daily and Carafate 1 gm ac and hs as a slurry. - Constitutional Vitals: Temp Pulse Resp BP Pulse Ox 97.9 F 82 19 147/57 96 12/28/18 08:07 12/28/18 08:07 12/28/18 08:07 12/28/18 08:07 12/28/18 08:07 General appearance: Present: cooperative, A&O X 3, no acute distress, answers questions appropriately - GI/Abdominal GI/Abdominal exam: Present: normal bowel sounds, soft, no peritoneal signs Results - Labs CBC & Chem 7: 12/28/18 06:09 12/28/18 06:09 Labs: Last Result 12/28/18 06:09 Calcium 8.4 L Entire Visit 12/28/18 06:09 Hgb 9.3 L Hct 28.9 L - ABG ABG results: PT/INR, D-dimer PT 12.5 Seconds (9.4-12.1) H 12/25/18 15:57 Consult Discharge Plan - Plan Referrals: Nani Calvillo DAYCARE TEACHER [Primary Care Provider] -
[2018-12-28 11:59] VITALS: BP 164/73
--- NOTE | 2018-12-28 14:52 | Nephrology Progress Note ---
Date of Encounter: 12/28/18 Time of Encounter: 15:00 - Assessment and Plan (1) Acute blood loss anemia Status: Acute Hgb remains stable overnight at 9.3 which is great Appreciate GI intervention with EGD, colonoscopy to be done outpatient (2) End stage renal disease Status: Chronic s/p HD yesterday, next planned on sunday likely outpatient on discharge Lytes stable (3) Hypertension Status: Chronic Qualifiers: Hypertension type: essential hypertension Qualified Code(s): I10 - Essential (primary) hypertension (4) Hyperphosphatemia Status: Chronic Subjective Interval history: Pt seen and examined doing well overall. No new complaints. eager to go home Objective - Vital Signs Vital signs: Vital Signs Temp Pulse Resp BP Pulse Ox 12/28/18 11:57 97.7 F 76 18 164/73 96 12/28/18 08:07 97.9 F 82 19 147/57 96 12/28/18 03:57 98.2 F 72 18 138/66 97 12/27/18 23:35 98.4 F 79 18 102/56 96 12/27/18 19:53 98.5 F 84 19 104/51 95 12/27/18 16:52 98.1 F 86 17 97/41 92 12/27/18 16:03 148/71 Intake and Output 12/27/18 12/28/18 12/28/18 23:59 07:59 15:59 Intake Total 120 / 120 Output Total 150 / 2550 700 / 700 Balance -150 / -1950 -580 / -580 Intake: Oral 120 / 120 Output: Urine 700 / 700 Catheter 150 / 1450 Other: Meal Breakfast Percent of Meal Consumed 100% Weight 66.2 kg - Lab 12/28/18 06:09 12/28/18 06:09 Most recent lab results 12/28/18 06:09 Calcium 8.4 L Consult Discharge Plan - Plan Instructions: Gastroesophageal Reflux Disease (GEN), Anemia (GEN), End-Stage Kidney Disease (GEN) Referrals: [facility] [Provider Group] (Please follow up on your normal HD days at [facility] on Sunday, Sunday and Sunday's. Thank you!) [facility] [Provider Group] Nani Calvillo, WAREHOUSE UNLOADER [Primary Care Provider] - (web request sent. If you do not hear from the office please call and schedule. Thank you!) Prescriptions: Sucralfate [Carafate] 1 gm PO QIDAC 30 Days #120 tablet cephALEXin [Keflex] 500 mg PO BID 5 Days #10 capsule Pantoprazole Sodium 20 mg PO DAILY 30 Days #30 tablet.
[2018-12-29] MEDS ORDERED: SODIUM CHLORIDE/NAHCO3/KCL/PEG 4,000 ML SOLN.RECON PO ONE (17:00)
== END 2018-12-28 13:12 | disposition home or self-care (01) ==
LOC: 2ANU → SUATTDRO 13:17
PROVIDERS: ADMIT Internal Medicine Nephrology; ATTEND Student in an Organized Health Care Education/Training Program
PROC: ENDOEBX (2018-12-26 13:00)

== ENCOUNTER 2019-01-22 10:16 | Observation (INO) ==
--- NOTE | 2019-01-22 11:01 | Emergency Department Note ---
Disposition Clinical Impression: Acute blood loss anemia Anemia Qualifiers: Anemia type: unspecified type Qualified Code(s): D64.9 - Anemia, unspecified GI bleed Qualifiers: GI bleed type/associated pathology: melena Qualified Code(s): K92.1 - Melena Disposition: Admitted As Inpatient Condition: Fair Time of Disposition: 14:02 General Adult HPI - General Chief complaint: ED Recheck/Abnormal Lab/Rx Stated complaint: low hgb Time Seen by Provider: 01/22/19 11:01 Source: patient, family Mode of arrival: ambulatory Limitations: no limitations Nursing Notes Reviewed: Yes Vital Signs Reviewed: Yes - History of Present Illness HPI Narrative: 73-year-old male past medical history of lower GI bleed scheduled for colonoscopy has not yet followed up. Has been seen within the last 3 months at this facility requiring blood transfusion at that time due to low hemoglobin, had incomplete bowel prep during his last colonoscopy attempt and could not be completed. Patient states that he was sent in from dialysis today where he is on a Sunday schedule the refused dialyze him as he had a hemoglobin of 6.1 at that time. Patient states he is completely asymptomatic and has no concerns but states that he has been having dark tarry stool for the last few months every time you the bathroom and this is his new normal. Patient hemoglobin noted to be 5.5 upon presentation. 2 units packed red blood cells were ordered after patient confirmed that he will accept blood products. Patient remains asymptomatic and hemodynamically stable. Onset (ago): month(s) Pain Severity: similar to prior episodes - Related Data Home Medications Medication Instructions Recorded Confirmed Calcium Acetate [Phos-LO] 667 mg PO TIDWM 12/25/18 01/23/19 Carvedilol [Coreg] 6.25 mg PO BIDWM 12/25/18 01/23/19 Clopidogrel [Plavix] 75 mg PO DAILY 12/25/18 01/23/19 Lisinopril [Zestril] 20 mg PO DAILY 12/25/18 01/23/19 Nitroglycerin [Nitrostat] 0.4 mg SL Q5M PRN MDD [id number] CALL 12/25/18 01/23/19 911 Ondansetron HCl [Zofran] 4 mg PO Q4-6H PRN 12/25/18 01/23/19 Simvastatin [Zocor] 40 mg PO QPM 12/25/18 01/23/19 Aspirin Enteric Coated [Aspirin EC] 81 mg PO DAILY 01/23/19 01/23/19 Cholecalciferol (Vitamin D3) 50,000 unit PO [place] 01/23/19 01/23/19 [Vitamin D3] Ondansetron HCl 4 mg PO TID 01/23/19 01/23/19 Pantoprazole Sodium [Protonix] 20 mg PO BID 01/23/19 01/23/19 Sucralfate [Carafate] 1 gm PO QIDAC 01/23/19 01/23/19 Allergies Allergy/AdvReac Type Severity Reaction Status Date / Time No Known Allergies Allergy Verified 01/23/19 11:41 Review of Systems: *See History of Present Illness for more detail Constitutional: Denies: fever, chills Cardiovascular: Denies: chest pain Respiratory: Denies: dyspnea, cough, hemoptysis Gastrointestinal: Patient admits to frequent melena Denies: abdominal pain, nausea, vomiting, diarrhea, constipation, hematemesis, hematochezia Genitourinary: Denies: hematuria Musculoskeletal: Denies: back pain, neck pain Neurological: Denies: headache, weakness, lightheadedness/dizziness, numbness, paresthesias, difficulty with ambulation. Endocrine: Denies: fatigue All systems ED: reviewed and negative except as stated. Review of Systems: As Per HPI Past Medical History - Past Medical History Medical history: Reports: dialysis, GERD, hypertension Psychiatric history: Reports: no psych history - Social History Smoking Status: Former smoker Smokeless Tobacco Status: No Alcohol use: Reports: none Drug use: Reports: none Physical Exam Constitutional: No acute distress, [id number], engaged to conversation, speech is fluid, answers questions appropriately Neuro: GCS 15, no overt focal neurological deficits Head: Atraumatic, normocephalic Eyes: Pupils equal, round and reactive to light, no scleral icterus, no c onjunctival injection Neck: Trachea midline without deviation. Anterior neck is supple without swelling. *Chest: Symmetric chest wall rise *Heart: Cardiac rhythm and rate are regular with S1 and S2 , no S3 or S4 appreciated, there is a continuous machinelike murmur noted throughout cardiac auscultation which is likely due to patient's AV fistula. Otherwise normal heart sounds. *Lungs: Lungs are clear to auscultation bilaterally, without accessory muscle use or prolonged expiratory phase. No wheezes, rhonchi or stridor appreciated. Abdomen: Abdomen is flat, soft to palpation, normal bowel sounds. No abdominal bruit auscultated. Non-distended, non-rigid, no organomegaly, no ascites appreciated. No pulsatile mass, no tenderness or guarding to palpation in all four quadrants, no rebound Extremities: Patent AV fistula noted in patient's left upper extremity. Good palpable thrill. Normal capillary refill without evidence of pedal edema, joint swelling or erythema. Pulses/motor intact in all 4 extremities. Psychiatric exam: Patient displays a normal affect and mood for the environment. No overt signs of hallucination. Integumentary: warm, dry, intact, normal color. No rash, cyanosis, diaphoresis, erythema, or pallor - General Limitations: no limitations General appearance: alert Course Course Narrative: 2 units packed red blood cells ordered typed and screened Basic laboratories IV fluids Patient states he is asymptomatic at this time and requires no further interventions for pain/nausea etc. - Reevaluation(s) Reevaluation #1: Rectal exam with hemocult performed in ED with Photo Cartographer Stool + for blood - hgb 5.5 Vital Signs Temperature 97.8 F 01/22/19 10:19 Pulse Rate 81 01/22/19 10:19 Respiratory Rate 15 01/22/19 10:19 Blood Pressure 155/68 01/22/19 10:19 O2 Sat by Pulse Oximetry 96 01/22/19 10:19 Temperature 99.1 F 01/23/19 06:42 Pulse Rate 72 01/23/19 06:42 Respiratory Rate 16 01/23/19 06:42 Blood Pressure 104/45 01/23/19 06:42 O2 Sat by Pulse Oximetry 96 01/23/19 08:25 Oxygen Delivery Oxygen Delivery Room Air Medical Decision Making - MDM Narrative Medical decision making narrative: Patient received packed red blood cell transfusion in the ED GI consulted and is following request nothing by mouth after midnight clear liquid diet until that time. Patient remains a symptomatically ED. Patient will be admitted to hospitals medicine service for further evaluation and management of GI bleed. A patient verbalizes understanding and agreement with this plan. Patient is hemodynamically stable time of admission. - Lab Data Lab results reviewed: Yes I reviewed the patient's lab results. Result diagrams: 01/24/19 06:15 01/23/19 04:10 Lab Results 01/22/19 01/22/19 01/22/19 Range/Units 10:52 10:52 10:52 WBC 4.9 (4.3-11.1) K/mcL RBC 1.74 L (4.19-5.50) M/mcL Hgb 5.5 L* (12.9-16.9) g/dL Hct 18.0 L (37.5-50.1) % MCV 103.4 H D (83.0-100.0) fL MCH 31.6 (28.0-33.3) pg MCHC 30.6 L (31.6-35.5) g/dL RDW 17.7 H (11.5-14.5) % Plt Count 156 (140-400) K/mcL MPV 10.5 (9.4-12.4) fL Seg Neutrophils % 62.0 % Band Neutrophils % 2.0 (0-4) % Lymphocytes % 28.0 % Monocytes % 8.0 % Neutrophils # 3.1 (1.6-8.9) K/mcL Lymphocytes # 1.4 (0.6-4.6) K/mcL Monocytes # 0.4 (0.0-1.3) K/mcL Platelet Estimate Normal (Normal) Polychromasia 1+ A (Not Present) Anisocytosis 1+ A (Not Present) PT (9.4-12.1) Seconds INR Sodium 135 L (136-145) mEq/L Potassium 3.7 (3.5-5.1) mEq/L Chloride 100 (98-107) mEq/L Carbon Dioxide 27 (23-29) mEq/L BUN 38 H (8-23) mg/dL Creatinine 3.66 H (0.70-1.30) mg/dL Est GFR ( Amer) 20 L (> 60) Est GFR (Non-Af Amer) 16 L (> 60) BUN/Creatinine Ratio 10 (6-26) Glucose 90 (70-105) mg/dL Calculated Osmolality 289 (280-300) Calcium 8.8 (8.6-10.3) mg/dL Total Bilirubin 0.3 (0.3-1.0) mg/dL Direct Bilirubin 0.1 (0.0-0.2) mg/dL Indirect Bilirubin 0.2 (0.0-1.2) mg/dL AST 9 L (13-39) Units/L ALT 7 (7-52) Units/L Alkaline Phosphatase 47 (34-104) Units/L Serum Total Protein 5.4 L (6.4-8.9) g/dL Albumin 3.5 (3.5-5.7) g/dL Globulin 1.9 L (2.4-3.5) g/dL Albumin/Globulin Ratio 1.8 (1.1-2.2) Stool Occult Bld Scrn (Negative) Blood Type O POSITIVE Antibody Screen NEGATIVE Crossmatch See Detail 01/22/19 01/22/19 Range/Units 10:52 12:00 WBC (4.3-11.1) K/mcL RBC (4.19-5.50) M/mcL Hgb (12.9-16.9) g/dL Hct (37.5-50.1) % MCV (83.0-100.0) fL MCH (28.0-33.3) pg MCHC (31.6-35.5) g/dL RDW (11.5-14.5) % Plt Count (140-400) K/mcL MPV (9.4-12.4) fL Seg Neutrophils % % Band Neutrophils % (0-4) % Lymphocytes % % Monocytes % % Neutrophils # (1.6-8.9) K/mcL Lymphocytes # (0.6-4.6) K/mcL Monocytes # (0.0-1.3) K/mcL Platelet Estimate (Normal) Polychromasia (Not Present) Anisocytosis (Not Present) PT 12.4 H (9.4-12.1) Seconds INR 1.1 Sodium (136-145) mEq/L Potassium (3.5-5.1) mEq/L Chloride (98-107) mEq/L Carbon Dioxide (23-29) mEq/L BUN (8-23) mg/dL Creatinine (0.70-1.30) mg/dL Est GFR ( Amer) (> 60) Est GFR (Non-Af Amer) (> 60) BUN/Creatinine Ratio (6-26) Glucose (70-105) mg/dL Calculated Osmolality (280-300) Calcium (8.6-10.3) mg/dL Total Bilirubin (0.3-1.0) mg/dL Direct Bilirubin (0.0-0.2) mg/dL Indirect Bilirubin (0.0-1.2) mg/dL AST (13-39) Units/L ALT (7-52) Units/L Alkaline Phosphatase (34-104) Units/L Serum Total Protein (6.4-8.9) g/dL Albumin (3.5-5.7) g/dL Globulin (2.4-3.5) g/dL Albumin/Globulin Ratio (1.1-2.2) Stool Occult Bld Scrn Positive A (Negative) Blood Type Antibody Screen Crossmatch Attestation Statement - Attestation Attestation: I have seen this patient with the resident physician, I have personally evaluated this patient. I had reviewed the chart and document dictation by the resident physician and aM in agreement with the information documented by the resident physician. Please see documentation by the resident physician for complete chart including past medical history, family medical history, review of systems, current history and physical and laboratory and imaging studies. I was present for all procedures, provided direct supervision for all procedures, was present for the entirety of all procedures and provided direct guidance during the procedures. Please see documentation by the resident physician for any procedures performed. I have reviewed all interpretations of EKGs, and reviewed all EKGs performed on patient's as well. I have also reviewed reports of imaging as provided by radiology.
[2019-01-22 11:15] LABS: Mean Corpuscular HGB Conc 30.6 g/dL (31.6-35.5); Mean Platelet Volume 10.5 fL (9.4-12.4)
[2019-01-22 11:16] LABS: Mean Corpuscular Hemoglobin 31.6 pg (28.0-33.3); Mean Corpuscular Volume 103.4 fL (83.0-100.0); Platelet Count 156 K/mcL (140-400); Red Blood Count 1.74 M/mcL (4.19-5.50); Red Cell Distribution Width 17.7 % (11.5-14.5); White Blood Count 4.9 K/mcL (4.3-11.1)
[2019-01-22 11:23] LABS: Hemoglobin 5.5 g/dL (12.9-16.9)
[2019-01-22] MEDS ORDERED: 0.9 % Sodium Chloride 1,000 ML IVC ONE (11:26)
[2019-01-22 11:34] LABS: Calcium 8.8 mg/dL (8.6-10.3); Potassium 3.7 mEq/L (3.5-5.1)
[2019-01-22 12:06] LABS: Lymphocytes # 1.4 K/mcL (0.6-4.6); Monocytes # 0.4 K/mcL (0.0-1.3); Neutrophils # 3.1 K/mcL (1.6-8.9)
[2019-01-22] MEDS ORDERED: Pantoprazole 40 MG VIAL IVP ONE (12:12)
[2019-01-22 12:13] LABS: Platelet Estimate Normal (Normal)
--- NOTE | 2019-01-22 12:13 | Emergency Department Note ---
Disposition Clinical Impression: Anemia, Acute blood loss anemia, GI bleed Disposition: Still a Patient Condition: Fair Forms: ED Satisfaction Letter Time of Disposition: 12:14 General Adult HPI - General Chief complaint: ED Recheck/Abnormal Lab/Rx Stated complaint: low hgb Time Seen by Provider: 01/22/19 11:01 Source: patient Limitations: no limitations Nursing Notes Reviewed: Yes Vital Signs Reviewed: Yes - History of Present Illness Pain Scale: 0 - Related Data Home Medications Medication Instructions Recorded Confirmed Calcium Acetate [Phos-LO] 1,334 mg PO TIDWM 12/25/18 12/25/18 Carvedilol [Coreg] 6.25 mg PO BID 12/25/18 12/25/18 Cholecalciferol (D-3) [Vitamin D] 1,000 unit PO DAILY 12/25/18 12/25/18 Clopidogrel [Plavix] 75 mg PO DAILY 12/25/18 12/25/18 Lisinopril [Zestril] 20 mg PO DAILY 12/25/18 12/25/18 Nitroglycerin [Nitrostat] 0.4 mg SL Q5M PRN MDD [id number] CALL 12/25/18 12/25/18 911 Ondansetron HCl [Zofran] 4 mg PO Q4-6H PRN 12/25/18 12/25/18 Simvastatin [Zocor] 40 mg PO HS 12/25/18 12/25/18 Previous Rx's Medication Instructions Recorded Pantoprazole Sodium 20 mg PO DAILY 30 Days #30 12/28/18 tablet. Sucralfate [Carafate] 1 gm PO QIDAC 30 Days #120 tablet 12/28/18 Allergies Allergy/AdvReac Type Severity Reaction Status Date / Time No Known Allergies Allergy Verified 01/22/19 10:19 Past Medical History - Past Medical History Medical history: Reports: dialysis, GERD, hypertension Psychiatric history: Reports: no psych history - Social History Smoking Status: Former smoker Smokeless Tobacco Status: No Alcohol use: Reports: none Drug use: Reports: none Physical Exam - General General appearance: alert Course Vital Signs Temperature 97.8 F 01/22/19 10:19 Pulse Rate 81 01/22/19 10:19 Respiratory Rate 15 01/22/19 10:19 Blood Pressure 155/68 01/22/19 10:19 O2 Sat by Pulse Oximetry 96 01/22/19 10:19 Temperature 97.8 F 01/22/19 11:26 Pulse Rate 74 01/22/19 11:47 Respiratory Rate 16 01/22/19 11:47 Blood Pressure 127/62 01/22/19 11:47 O2 Sat by Pulse Oximetry 100 01/22/19 11:47 Oxygen Delivery Oxygen Delivery Room Air Medical Decision Making - Lab Data Result diagrams: 01/22/19 10:52 01/22/19 10:52 Lab Results 01/22/19 01/22/19 01/22/19 Range/Units 10:52 10:52 10:52 WBC 4.9 (4.3-11.1) K/mcL RBC 1.74 L (4.19-5.50) M/mcL Hgb 5.5 L* (12.9-16.9) g/dL Hct 18.0 L (37.5-50.1) % MCV 103.4 H D (83.0-100.0) fL MCH 31.6 (28.0-33.3) pg MCHC 30.6 L (31.6-35.5) g/dL RDW 17.7 H (11.5-14.5) % Plt Count 156 (140-400) K/mcL MPV 10.5 (9.4-12.4) fL Sodium 135 L (136-145) mEq/L Potassium 3.7 (3.5-5.1) mEq/L Chloride 100 (98-107) mEq/L Carbon Dioxide 27 (23-29) mEq/L BUN 38 H (8-23) mg/dL Creatinine 3.66 H (0.70-1.30) mg/dL Est GFR ( Amer) 20 L (> 60) Est GFR (Non-Af Amer) 16 L (> 60) BUN/Creatinine Ratio 10 (6-26) Glucose 90 (70-105) mg/dL Calculated Osmolality 289 (280-300) Calcium 8.8 (8.6-10.3) mg/dL Blood Type O POSITIVE Attestation Statement - Attestation Attestation: I have seen this patient with the resident physician, I have personally evaluated this patient. I had reviewed the chart and document dictation by the resident physician and aM in agreement with the information documented by the resident physician. Please see documentation by the resident physician for complete chart including past medical history, family medical history, review of systems, current history and physical and laboratory and imaging studies. I was present for all procedures, provided direct supervision for all procedures, was present for the entirety of all procedures and provided direct guidance during the procedures. Please see documentation by the resident physician for any procedures performed. I have reviewed all interpretations of EKGs, and reviewed all EKGs performed on patient's as well. I have also reviewed reports of imaging as provided by radiology. Patient presented to the emergency department with chief complaint of low hemoglobin. He was at dialysis today, they checked his hemoglobin and it was down to 6.1. He does endorse some mild generalized weakness no dizziness no headache no neck pain no chest pain or shortness of breath no abdominal pain. He has noticed some darker stools for a while, but has not been able to get a colonoscopy performed. Hemodynamically within acceptable limits hemoglobin is 5.5. Remainder laboratory studies consistent with his history of dialysis no other acute abnormality no electronic disturbance. Rectal examination was performed, revealed no gross blood, no melena dark brown appearing stool sent for Hemoccult testing. Patient was given 1 dose of IV proton pump inhibitor. Patient will be admitted to the hospital for further evaluation and management of progressive anemia. Type and cross was initiated, with transfusion initiated.
[2019-01-22 12:14] LABS: Anisocytosis 1+ (Not Present); Polychromasia 1+ (Not Present)
[2019-01-22 12:32] LABS: Albumin 3.5 g/dL (3.5-5.7); Albumin/Globulin Ratio 1.8 (1.1-2.2); Bilirubin,Direct 0.1 mg/dL (0.0-0.2); Bilirubin,Indirect 0.2 mg/dL (0.0-1.2); Bilirubin,Total 0.3 mg/dL (0.3-1.0); Globulin 1.9 g/dL (2.4-3.5); Total Protein 5.4 g/dL (6.4-8.9)
[2019-01-22] MEDS ORDERED: Naloxone 0.4 MG/ML INJ IVP PRN (13:36)
[2019-01-22] MEDS ORDERED: Ondansetron 4 MG/2 ML VIAL IVP PRN (13:36)
[2019-01-22] MEDS ORDERED: Nitroglycerin 0.4 MG TAB.SUBL SL PRN (13:41)
--- NOTE | 2019-01-22 13:42 | Internal Med History&Physical ---
Date of Encounter: 01/22/19 Time of Encounter: 13:15 Internal Medicine - H&P: HPI Chief complaint: low Hb Admitted From: Home History of present illness: Mr. Adair is a 73 year old male with history of ESRD on HD MWF, PUD with recent admission for GIB in 12/2018 when he was found to have 1 gastric ulcer that was not bleeding at that time, CAD s/p remote PCI on DAPT, who presented to the ED due to low Hb. He usually takes weekly lab drawn due to his ESRD status and was told that his Hb was ok on the last 2 occasions after the last discharge . However, it was noted to be in the 6s today hence he did not get dialysis and was sent to the ED instead for further evaluation. Patient however denies any symptoms of melena, hematochezia, bright red blood per rectum, hemoptysis, or hematemesis. No abdominal pain, nausea/vomiting, or change in bowel habits. No fever/chills, diaphoresis, lightheadedness, palpitation, orthopnea, PND, or LE swelling. In the ED, he was afebrile and hemodynamically stable. Labwork again demonstrated a hemoglobin of 5.5 with MCV of 103.4. FOBT was also positive. No electrolyte abnormalities noted on BMP. He was given a dose of Protonix and admitted for further management.. Past Med Surg Social Fam HX - Past Medical History Medical history: dialysis, GERD, hypertension Psychiatric history: no psych history - Social History Smoking Status: Former smoker Smokeless Tobacco Status: No Alcohol use: none Drug use: none - Family History Mother Hx Family Cancer: Yes Hx Family Endocrine Disorder: Yes Sister Hx Family Cardiac Disorders: Yes Hx Family Endocrine Disorder: Yes Internal Medicine - H&P: Meds Calcium Acetate [Phos-LO] 1,334 mg PO TIDWM 12/25/18 [History] Carvedilol [Coreg] 6.25 mg PO BID 12/25/18 [History] Cholecalciferol (D-3) [Vitamin D] 50,000 unit PO QWEEK 12/25/18 [History] Clopidogrel [Plavix] 75 mg PO DAILY 12/25/18 [History] Lisinopril [Zestril] 20 mg PO DAILY 12/25/18 [History] Nitroglycerin [Nitrostat] 0.4 mg SL Q5M PRN MDD [id number] CALL 911 12/25/18 [History] Ondansetron HCl [Zofran] 4 mg PO Q4-6H PRN 12/25/18 [History] Simvastatin [Zocor] 40 mg PO HS 12/25/18 [History] Pantoprazole Sodium 20 mg PO DAILY 30 Days #30 tablet. 12/28/18 [Rx] Allergy/AdvReac Type Severity Reaction Status Date / Time No Known Allergies Allergy Verified 01/22/19 10:19 All Systems PM: A 10-system review of systems was performed and is negative for pertinent findings except as documented above in the HPI. - Constitutional Vitals: Temp Pulse Resp BP Pulse Ox 98.3 F 76 16 126/62 100 01/22/19 12:57 01/22/19 12:57 01/22/19 12:57 01/22/19 12:57 01/22/19 12:57 Exam: General: Alert and oriented, not in acute distress. HEENT:EOMI, pupils equal, round and reactive. Cardiovascular:Normal S1 & S2, No JVD. Pulse regular. Lungs: clear to auscultation, no wheezes/rales Abdomen:Soft, non-tender, no rigidity. Declines HANNAH Extremities:No deformity or swelling Neurological:Normal cognition and motor skills. Non-focal Skin:Normal color, no rash, no lesions. Pulses:Carotid and radial pulses normal +2. Rest of the physical exam is non contributory Internal Med - H&P Results - Labs CBC & Chem 7: 01/22/19 10:52 01/22/19 10:52 Labs: Short CBC 01/22/19 Range/Units 10:52 WBC 4.9 (4.3-11.1) K/mcL Hgb 5.5 L* (12.9-16.9) g/dL Hct 18.0 L (37.5-50.1) % Plt Count 156 (140-400) K/mcL Neutrophils # 3.1 (1.6-8.9) K/mcL BMP 01/22/19 10:52 Sodium 135 L Potassium 3.7 Chloride 100 Carbon Dioxide 27 BUN 38 H Creatinine 3.66 H Glucose 90 Calcium 8.8 Liver Function 01/22/19 Range/Units 10:52 Total Bilirubin 0.3 (0.3-1.0) mg/dL Direct Bilirubin 0.1 (0.0-0.2) mg/dL AST 9 L (13-39) Units/L ALT 7 (7-52) Units/L Alkaline Phosphatase 47 (34-104) Units/L Albumin 3.5 (3.5-5.7) g/dL - Assessment and Plan (1) Acute blood loss anemia Current Visit: Yes Status: Acute Assessment and plan: presented with Hb of 5.5 and FOBT +ve was admitted in early December for the same issue -> EGD showed 1 gastric ulcer with out stigmata of bleeding and colonoscopy was limited due to poor bowel prep. ordered 2U pRBC in the ED, will repeat H&H after and trend Q8H requested GI to be consulted for possible colonoscopy +/- EGD tomorrow clear liquid diet for now, NPO after midnight PPI BID, hold off on dual antiplatelets (2) GI bleed Current Visit: Yes Status: Acute Assessment and plan: recent admission for a similar problem, mx as above Qualifiers: GI bleed type/associated pathology: unspecified gastrointestinal hemorrhage type Qualified Code(s): K92.2 - Gastrointestinal hemorrhage, unspecified (3) End stage renal disease Current Visit: No Status: Chronic Assessment and plan: consulted nephrology for inpatient HD (4) Hypertension Current Visit: No Status: Chronic Assessment and plan: resume home meds Qualifiers: Hypertension type: essential hypertension Qualified Code(s): I10 - Essential (primary) hypertension (5) CAD (coronary artery disease) Current Visit: Yes Status: Chronic Assessment and plan: hx of remote PCI on dual antiplatelets, hold due to anemia resume bb, MAKEDA-i, and statin Qualifiers: Coronary Disease-Associated Artery/Lesion type: [place] artery [place] vs. transplanted heart: [place] heart Associated angina: without angina Qualified Code(s): I25.10 - Atherosclerotic heart disease of [place] coronary artery without angina pectoris (6) DVT prophylaxis Current Visit: No Status: Acute Assessment and plan: EPCD - Time Spent With Patient Total time spent is greater than 50% in coordination of care (as documented) at patient's floor/unit and/or counseling patient: 25 - 35 minutes
[2019-01-22 14:12] LABS: INR 1.1; Prothrombin Time 12.4 Seconds (9.4-12.1)
--- NOTE | 2019-01-22 14:17 | Nephrology Consult Note ---
Date of Encounter: 01/22/19 Time of Encounter: 14:13 Assessment and Plan (1) ESRD (end stage renal disease) on dialysis Current Visit: Yes Status: Acute HD MWF in [place]. Last full session was Sunday, without complication. HD ordered for today, given he will be given multiple units of PRBC's. Renal dose all medications. Avoid nephrotoxins. Strict I/O (2) Acute blood loss anemia Current Visit: Yes Status: Acute Hgb 5.5. 1 unit PRBC's infusing. Per primary. (3) GI bleed Current Visit: Yes Status: Acute Per primary. Qualifiers: GI bleed type/associated pathology: melena Qualified Code(s): K92.1 - Melena (4) CAD (coronary artery disease) Current Visit: Yes Status: Chronic Per primary. Qualifiers: Coronary Disease-Associated Artery/Lesion type: [place] artery [place] vs. transplanted heart: [place] heart Associated angina: without angina Qualified Code(s): I25.10 - Atherosclerotic heart disease of [place] coronary artery without angina pectoris History of Present Illness - Reason for Consult Consult date: 01/22/19 end stage renal disease Requesting physician: Alexander Rose - Chief Complaint r/o GI bleed - History of Present Illness Mr. Adair is a 73 year old male who presented to ED with low Hgb and dark tarry stools. He was at his HD unit and was advised to come to ED for evaluation of Hgb. Hgb was 5.5. PMH: HTN, Gerd, ESRD, CAD and PUD. ESRD regimen MWF in [place]. [facility] were consulted to manage HD while in hospital. Will plan on HD for today. He reports that he has had black tarry stools for approximately one month. He was in the hospital last month with gastric ulcer that was not bleeding at the time. Admits to nausea, and occasional non-bloody emesis. He does still make urine. Denies any urinary symptoms. He lives at home with 2 brothers. Denies etoh, illicit drug use. Denies tobacco use. Past Med Surg Social Fam HX - Past Medical History Medical history: dialysis, GERD, hypertension Psychiatric history: no psych history - Social History Smoking Status: Former smoker Smokeless Tobacco Status: No Alcohol use: none Drug use: none - Family History Mother Hx Family Cancer: Yes Hx Family Endocrine Disorder: Yes Sister Hx Family Cardiac Disorders: Yes Hx Family Endocrine Disorder: Yes Medications and Allergies Calcium Acetate [Phos-LO] 1,334 mg PO TIDWM 12/25/18 [History] Carvedilol [Coreg] 6.25 mg PO BID 12/25/18 [History] Cholecalciferol (D-3) [Vitamin D] 50,000 unit PO QWEEK 12/25/18 [History] Clopidogrel [Plavix] 75 mg PO DAILY 12/25/18 [History] Lisinopril [Zestril] 20 mg PO DAILY 12/25/18 [History] Nitroglycerin [Nitrostat] 0.4 mg SL Q5M PRN MDD [id number] CALL 911 12/25/18 [History] Ondansetron HCl [Zofran] 4 mg PO Q4-6H PRN 12/25/18 [History] Simvastatin [Zocor] 40 mg PO HS 12/25/18 [History] Pantoprazole Sodium 20 mg PO DAILY 30 Days #30 tablet. 12/28/18 [Rx] Allergy/AdvReac Type Severity Reaction Status Date / Time No Known Allergies Allergy Verified 01/22/19 10:19 Review of Systems All Systems review (narrative): The remainder of the systems are negative. Constitutional: no anorexia, no chills, no fever(s) Cardiovascular: no chest pain, no dyspnea, no edema Gastrointestinal: change in stool character, diarrhea, melena, nausea, vomiting Genitourinary Male: no urinary frequency, no urinary incontinence, no urinary urgency Exam - Vital Signs Vital signs: Initial Vital Signs Temp Pulse Resp BP Pulse Ox 97.8 F 81 15 155/68 96 01/22/19 10:19 01/22/19 10:19 01/22/19 10:19 01/22/19 10:19 01/22/19 10:19 Vital Signs - Last 8 Hours Temp Pulse Resp BP Pulse Ox 01/22/19 13:39 81 16 133/65 100 01/22/19 12:57 98.3 F 76 16 126/62 100 01/22/19 12:42 98.0 F 76 16 136/62 100 01/22/19 12:30 78 16 124/65 100 01/22/19 11:47 74 16 127/62 100 01/22/19 11:26 97.8 F 81 16 143/76 98 01/22/19 10:19 97.8 F 81 15 155/68 96 Intake and Output 01/21/19 01/22/19 01/22/19 23:59 07:59 15:59 Intake Total 1075 / 1075 Balance 1075 / 1075 Intake: IV Fluids 1000 / 1000 0.9 % Sodium Chloride 1,000 ML 1000 / 1000 @ 999 mls/hr IVC .Q1H1M ONE Rx# :[id number] Blood Product 75 / 75 Rbcs Leuko Poor As-1 Unit 75 / 75 [id number] Other: Weight 62.596 kg Patient Weight 01/22/19 23:59 Weight 62.596 kg - General Appearance General appearance: well-developed, well-nourished EENT: ATNC, hearing intact, vision intact Neck: supple Respiratory: clear Cardiology: no edema, normal S1, normal S2 - Dialysis Access Dialysis Vascular Access: Arteriovenous Fistula thrill: Yes bruit: Yes Gastrointestinal: normoactive bowel sounds, no tenderness, no guarding Integumentary: no rash, warm and dry Results - Lab Results 01/22/19 10:52 01/22/19 10:52 Most recent lab results 01/22/19 10:52 Calcium 8.8 Consult Discharge Plan - Plan Referrals: Nani Calvillo CNP [Primary Care Provider] -
[2019-01-22] MEDS ORDERED: 0.9 % Sodium Chloride 250 ML IVC PRN (14:41)
[2019-01-22] MEDS ORDERED: 0.9 % Sodium Chloride 1,000 ML PRIME SCH (14:45)
[2019-01-22] MEDS: Pantoprazole 40 MG VIAL IVP SCH (17:38)
[2019-01-22] MEDS: Calcium Acetate 667 MG CAPSULE PO SCH (17:38)
[2019-01-22 18:09] LABS: Hematocrit 25.1 % (37.5-50.1)
[2019-01-22 18:15] LABS: Hemoglobin 8.3 g/dL (12.9-16.9)
--- NOTE | 2019-01-22 18:53 | Internal Medicine Consult Note ---
Date of Encounter: 01/22/19 Time of Encounter: 18:50 - Assessment and Plan (1) Anemia Current Visit: Yes Status: Acute Assessment and plan: He has had recent worsening of anemia, again this appears to be somewhat macrocytic at this time, it also should be noted that his BUN has not risen. In light of other etiologies, I do believe it might be helpful to have a relook of his upper GI tract, as well as to make sure we complete his colonoscopy. I recommended both procedures today with risks and benefits being discussed. He has signed consents. Other causes of macrocytosis should be considered, specifically occult liver di sease which I believe is less likely, early myelodysplasia, as well as B12 or folate deficiency. Going forward, would recommend continued PPI therapy, stop Plavix at this time and other antiplatelet agents. Qualifiers: Anemia type: unspecified type Qualified Code(s): D64.9 - Anemia, unspecified (2) ESRD (end stage renal disease) on dialysis Current Visit: Yes Status: Chronic (3) GERD (gastroesophageal reflux disease) Current Visit: No Status: Chronic Assessment and plan: Stability is somewhat questionable with recent diagnosis of mild esophagitis. Qualifiers: Esophagitis presence: with esophagitis Qualified Code(s): K21.0 - Gastro- esophageal reflux disease with esophagitis (4) Hypertension Current Visit: No Status: Chronic Qualifiers: Hypertension type: essential hypertension Qualified Code(s): I10 - Essential (primary) hypertension (5) Ischemic heart disease Current Visit: Yes Status: Chronic Internal Medicine - CN: HPI - Data of Consult Patient: new to practice Requesting Physician: Alexander Rose MD - Consult Narrative Reason for consult: Continued anemia, thought to be GI blood loss History of present illness: Mr. Adair is a 73 year old male who was brought in the hospital today, as he has had continued drop in his hemoglobin. Apparently was seen in dialysis today and was found to have a low hemoglobin, and was brought to the ER and then into the hospital. This gentleman reports no abdominal pain he admits his stools have been dark but that is really not new for him, no nausea no vomiting. He admits is really not had any bowel movement today nor is he really not much. Currently receiving dialysis, without any trouble with blood pressure, also receiving 2 units of blood. Hemoglobin at this time was reported at 5.5 It should be noted that roughly one month ago, he came in for the same issue. Upper and lower endoscopy were done at that time showing esophagitis and gastritis and may be a gastric ulcer that was clean based and small. He tested negative for H. pylori. Colonoscopy, during the same admission was attempted, but somewhat limited due to poor prep colonoscopy was completed to the transverse colon. He has unable to recall prior colonoscopies. Unfortunately it appears he was still taking aspirin and Plavix after previous discharge. Past Med Surg Social Fam HX - Past Medical History Medical history: dialysis, GERD, hypertension Additional medical history: To include recent diagnosis of gastritis, and esophagitis. Psychiatric history: no psych history - Past Surgical History Additional surgical history: No reported other than left AV fistula - Social History Smoking Status: Former smoker Smokeless Tobacco Status: No Alcohol use: none Drug use: none - Family History Mother Hx Family Cancer: Yes Hx Family Endocrine Disorder: Yes Sister Hx Family Cardiac Disorders: Yes Hx Family Endocrine Disorder: Yes - Constitutional Constitutional: no anorexia, no chills, no fatigue, no fever(s), no lethargy, no weakness, no weight loss - Cardiovascular Cardiovascular ROS IM: no chest pain, no diaphoresis, no dyspnea on exertion, no edema, no syncope - Respiratory Respiratory: no cough, no dyspnea on exertion - Gastrointestinal Gastrointestinal: melena, no abdominal pain, no change in bowel habits, no change in stool character, no coffee ground emesis, no constipation, no diarrhea, no early satiety, no heartburn, no hematemesis, no hematochezia, no nausea, no vomiting - Musculoskeletal Musculoskeletal ROS IM: no arthralgias, no myalgias - Neurological Neurological ROS: no focal weakness, no lack of coordination, no loss of vision - Hematologic/Lymphatic Hematologic/Lymphatic: no easy bleeding, no easy bruising, no lymphadenopathy Internal Medicine - CN: Meds Calcium Acetate [Phos-LO] 1,334 mg PO TIDWM 12/25/18 [History] Carvedilol [Coreg] 6.25 mg PO BID 12/25/18 [History] Cholecalciferol (D-3) [Vitamin D] 50,000 unit PO QWEEK 12/25/18 [History] Clopidogrel [Plavix] 75 mg PO DAILY 12/25/18 [History] Lisinopril [Zestril] 20 mg PO DAILY 12/25/18 [History] Nitroglycerin [Nitrostat] 0.4 mg SL Q5M PRN MDD [id number] CALL 911 12/25/18 [History] Ondansetron HCl [Zofran] 4 mg PO Q4-6H PRN 12/25/18 [History] Simvastatin [Zocor] 40 mg PO HS 12/25/18 [History] Pantoprazole Sodium 20 mg PO DAILY 30 Days #30 tablet. 12/28/18 [Rx] Allergy/AdvReac Type Severity Reaction Status Date / Time No Known Allergies Allergy Verified 01/22/19 10:19 Internal Med - CN: Exam - Constitutional Vitals: Temp Pulse Resp BP Pulse Ox 98.0 F 79 16 123/64 100 01/22/19 16:55 01/22/19 16:55 01/22/19 16:55 01/22/19 18:35 01/22/19 14:44 General appearance IM: Present: cachectic, A&O X 2, pleasant, no acute distress. Absent: answers questions appropriately Exam: Not really considered an appropriate historian, his sister make sure he takes his home medications. - Head Head exam: Present: atraumatic, normal inspection - Eye Eye exam: Present: EOMI, conjuntiva pink, sclera anicteric. Absent: conjunctival injection - ENT ENT exam: Present: mucous membranes moist - Neck Neck exam general surgery: Present: full ROM, supple, trachea midline - Respiratory Respiratory exam: Present: CTAB. Absent: respiratory distress, wheezes, tachypnea - Cardiovascular Cardiovascular exam IM: Present: RRR, +S1, +S2. Absent: irregular rhythm, JVD, tachycardia Additional comments: 1/6 diastolic murmur noted - GI/Abdominal GI/Abdominal exam IM: Present: normal bowel sounds, soft, no peritoneal signs. Absent: rebound, rigid, splenomegaly - Rectal Rectal exam: Present: deferred Internal Medicine - CN: Reslt - Labs CBC & Chem 7: 01/22/19 17:55 01/22/19 10:52 Labs: Short CBC 01/22/19 01/22/19 Range/Units 10:52 17:55 WBC 4.9 (4.3-11.1) K/mcL Hgb 5.5 L* 8.3 L D (12.9-16.9) g/dL Hct 18.0 L 25.1 L (37.5-50.1) % Plt Count 156 (140-400) K/mcL Neutrophils # 3.1 (1.6-8.9) K/mcL BMP 01/22/19 10:52 Sodium 135 L Potassium 3.7 Chloride 100 Carbon Dioxide 27 BUN 38 H Creatinine 3.66 H Glucose 90 Calcium 8.8 Liver Function 01/22/19 Range/Units 10:52 Total Bilirubin 0.3 (0.3-1.0) mg/dL Direct Bilirubin 0.1 (0.0-0.2) mg/dL AST 9 L (13-39) Units/L ALT 7 (7-52) Units/L Alkaline Phosphatase 47 (34-104) Units/L Albumin 3.5 (3.5-5.7) g/dL - ABG Interpretation ABG results: PT/INR, D-dimer PT 12.4 Seconds (9.4-12.1) H 01/22/19 10:52 Consult Discharge Plan - Plan Referrals: Nani Calvillo, [employer] [Primary Care Provider] -
[2019-01-22 18:56] LABS: Folate 7.1 ng/mL (3.0-16.0)
[2019-01-23 04:48] LABS: Basophils % 0.4 %; Eosinophils # 0.1 K/mcL (0.0-0.6); Eosinophils % 2.1 %; Hematocrit 24.9 % (37.5-50.1); Hemoglobin 7.8 g/dL (12.9-16.9); Immature Granulocytes % 0.9 % (0-4); Lymphocytes # 0.9 K/mcL (0.6-4.6); Lymphocytes % 19.9 %; Mean Corpuscular HGB Conc 31.3 g/dL (31.6-35.5); Mean Corpuscular Hemoglobin 31.3 pg (28.0-33.3); Mean Platelet Volume 10.6 fL (9.4-12.4); Monocytes # 0.6 K/mcL (0.0-1.3); Monocytes % 13.5 %; Platelet Count 143 K/mcL (140-400); Red Blood Count 2.49 M/mcL (4.19-5.50); Segmented Neutrophils % 63.2 %; White Blood Count 4.7 K/mcL (4.3-11.1)
[2019-01-23 05:05] LABS: Calcium 8.3 mg/dL (8.6-10.3); Potassium 3.2 mEq/L (3.5-5.1)
[2019-01-23] MEDS: Pantoprazole 40 MG VIAL IVP SCH ×2 (06:34→17:31)
--- NOTE | 2019-01-23 08:14 | Nephrology Progress Note ---
Date of Encounter: 01/23/19 Time of Encounter: 08:12 - Assessment and Plan (1) ESRD (end stage renal disease) on dialysis Current Visit: Yes Status: Chronic HD MWF in [place]. HD completed yesterday. Renal dose all medications. Avoid nephrotoxins. Strict I/O Renal diet (2) Acute blood loss anemia Current Visit: Yes Status: Acute Hgb 7.8. s/p 2 units PRBC's. Per primary. (3) GI bleed Current Visit: Yes Status: Acute Per primary. Qualifiers: GI bleed type/associated pathology: melena Qualified Code(s): K92.1 - Melena (4) CAD (coronary artery disease) Current Visit: Yes Status: Chronic Per primary. Qualifiers: Coronary Disease-Associated Artery/Lesion type: [place] artery [place] vs. transplanted heart: [place] heart Associated angina: without angina Qualified Code(s): I25.10 - Atherosclerotic heart disease of [place] coronary artery without angina pectoris Subjective Principal diagnosis: low hgb Interval history: Pt seen and examined, doing well. Denies chest pain or shortness of breath. Den ies nausea, vomiting, or diarrhea. Objective - Vital Signs Vital signs: Vital Signs Temp Pulse Resp BP Pulse Ox 01/23/19 06:42 99.1 F 72 16 104/45 96 01/23/19 04:56 98.2 F 68 15 117/66 96 01/23/19 00:51 98.0 F 73 15 121/68 95 01/22/19 19:22 98 F 18 136/70 01/22/19 19:05 123/56 01/22/19 18:50 124/61 01/22/19 18:35 123/64 01/22/19 18:20 125/66 01/22/19 18:05 126/67 01/22/19 17:50 130/67 01/22/19 17:35 121/66 01/22/19 17:20 132/63 01/22/19 17:05 130/65 01/22/19 16:55 98.0 F 79 16 126/61 01/22/19 16:50 130/67 01/22/19 16:40 97.6 F 72 16 134/64 01/22/19 16:35 125/64 01/22/19 16:25 97.6 F 78 16 128/66 01/22/19 16:20 131/66 01/22/19 16:05 97.7 F 18 122/62 01/22/19 15:51 97.9 F 78 16 144/70 01/22/19 14:44 97.8 F 76 16 146/67 100 01/22/19 13:39 81 16 133/65 100 01/22/19 12:57 98.3 F 76 16 126/62 100 01/22/19 12:42 98.0 F 76 16 136/62 100 01/22/19 12:30 78 16 124/65 100 01/22/19 11:47 74 16 127/62 100 01/22/19 11:26 97.8 F 81 16 143/76 98 01/22/19 10:19 97.8 F 81 15 155/68 96 Intake and Output 01/22/19 01/23/19 01/23/19 23:59 07:59 15:59 Intake Total 950 / 2375 Output Total 3200 / 3800 200 / 200 Balance -2250 / -1425 -200 / -200 Intake: Blood Product 350 / 775 Rbcs Leuko Poor As-3 Ph Unit 350 / 350 [id number] Intake, Rinseback and Flushes 600 / 600 Output: Urine 200 / 200 Total Dialysis (HD) Output 2950 / 2950 Catheter 250 / 850 Other: Stool Size Large Stool Consistency liquid Stool Color Brown # Bowel Movements 1 # Bowel Movement Diapers 1 Hemodialysis Net Fluid Removed 2600 (mL) - General Appearance General appearance: Present: well-developed, well-nourished EENT: Present: ATNC, hearing intact, vision intact Neck: Present: supple Respiratory: Present: clear Cardiology: Present: no edema, normal S1, normal S2 Dialysis Vascular Access: Arteriovenous Fistula thrill: Yes bruit: Yes Gastrointestinal: Present: normoactive bowel sounds, no tenderness, no guarding Integumentary: Present: no rash, warm and dry Neurologic: Present: alert and oriented x3 Musculoskeletal: Present: no deformities, no erythema Psychiatric: Present: mood/affect appropriate, cooperative - Lab 01/23/19 04:10 01/23/19 04:10 Most recent lab results 01/23/19 04:10 Calcium 8.3 L Consult Discharge Plan - Plan Referrals: Nani Calvillo, [employer] WORK PROGRAM COORDINATOR [Primary Care Provider] -
[2019-01-23 08:24] LABS: Hematocrit 25.6 % (37.5-50.1)
[2019-01-23] MEDS: Calcium Acetate 667 MG CAPSULE PO SCH ×3 (08:33→17:31)
[2019-01-23] MEDS: Lisinopril 20 MG TABLET PO SCH (08:33)
[2019-01-23] MEDS ORDERED: SODIUM CHLORIDE/NAHCO3/KCL/PEG 4,000 ML SOLN.RECON PO ONE (09:05)
--- NOTE | 2019-01-23 14:08 | Internal Med Progress Note ---
Hospitalist Progress Note - Encounter Date of Encounter: 01/23/19 Time of Encounter: 09:20 - Subjective Interval History: Patient seen at bedside. Denies chest pain, shortness of breath, bright blood in the stools. Endorses melena, last episode was last night. Patient hemoglobin has been around it after 2 units of blood. Denies any dizziness. Denies any hematemesis. - Exam Vitals: Temp Pulse Resp BP Pulse Ox 98.3 F 73 18 144/66 96 01/23/19 11:08 01/23/19 11:08 01/23/19 11:08 01/23/19 11:08 01/23/19 11:08 Exam: General: Alert and oriented, no physical distress, able to follow commands. HEENT: No thyromegaly, no lymphadenopathy, no discharge. Eyes: No discharge. Respiratory: Normal vesicular breathing, no added sounds, breathing equal in both sides. CVS: Normal heart sounds, no murmurs, no edema. Extremities: No peripheral edema, peripheral pulses intact. Lymph nodes: No lymphadenopathy Gastrointestinal: Soft, nontender abdomen, normal abdominal sounds. No distention noted. Genitourinary: No paravertebral tenderness. Neurological: Alert and oriented. No focal deficits. Cranial nerves II-XII intact. - Assessment and Plan (1) Acute blood loss anemia Current Visit: Yes Status: Acute Assessment and Plan: Patient presented with a hemoglobin of 5.5 and FOBT was positive. Corticocancellous, patient hemoglobin is around 8. Hemoglobin has been stable. GI on board. Planning for endoscopy and colonoscopy tomorrow. Repeat H&H today. If stable, will repeat CBC tomorrow morning. Counseled the patient to report tothe nurse, if the patient notices any melena, blood in stools, dizziness, chest pain or shortness of breath. Patient is on clear liquid diet. Hold off on the antiplatelet. Continue Protonix. (2) GI bleed Current Visit: Yes Status: Acute Assessment and Plan: Likely etiology for the acute blood loss anemia is GI bleed. Plan as mentioned above. (3) Anemia Current Visit: Yes Status: Acute Assessment and Plan: Etiology blood loss superimposed on anemia due to chronic kidney disease Outpatient management for the anemia of chronic kidney disease. Management of the acute blood loss anemia mentioned above. (4) Hypertension Current Visit: No Status: Chronic Assessment and Plan: Blood pressure has been stable. Continue the home medications. (5) GERD (gastroesophageal reflux disease) Current Visit: No Status: Chronic Assessment and Plan: Continue Protonix (6) ESRD (end stage renal disease) on dialysis Current Visit: Yes Status: Chronic Assessment and Plan: ESRD on hemodialysis. Nephrology consulted for the plan for the in patient hemodialysis (7) Ischemic heart disease Current Visit: Yes Status: Chronic Assessment and Plan: History of CAD with remote history of stent placement, currently on aspirin and Plavix. Continue MAKEDA inhibitor, atorvastatin, beta eliseo. Hold aspirin and Plavix for now because of the GI bleed. DVT Prophylaxis: -Pneumatic compression devices - Time Spent with Patient Total time spent is greater than 50% in coordination of care (as documented) at patient's floor/unit and/or counseling patient: Internal Medicine: Result - Labs CBC & Chem 7: 01/23/19 08:04 01/23/19 04:10 Labs: Short CBC 01/22/19 01/23/19 01/23/19 Range/Units 17:55 04:10 08:04 WBC 4.7 (4.3-11.1) K/mcL Hgb 8.3 L D 7.8 L 8.0 L (12.9-16.9) g/dL Hct 25.1 L 24.9 L 25.6 L (37.5-50.1) % Plt Count 143 (140-400) K/mcL Neutrophils # 3.0 (1.6-8.9) K/mcL BMP 01/23/19 04:10 Sodium 137 Potassium 3.2 L Chloride 103 Carbon Dioxide 28 BUN 15 Creatinine 2.33 H Glucose 91 Calcium 8.3 L - ABG Interpretation ABG results: PT/INR, D-dimer PT 12.4 Seconds (9.4-12.1) H 01/22/19 10:52 Consult Discharge Plan - Plan Referrals: Nani Calvillo, [employer] [Primary Care Provider] - (2) GI bleed Qualifiers: GI bleed type/associated pathology: melena Qualified Code(s): K92.1 - Melena (3) Anemia Qualifiers: Anemia type: unspecified type Qualified Code(s): D64.9 - Anemia, unspecified (4) Hypertension Qualifiers: Hypertension type: essential hypertension Qualified Code(s): I10 - Essential (primary) hypertension (5) GERD (gastroesophageal reflux disease) Qualifiers: Esophagitis presence: with esophagitis Qualified Code(s): K21.0 - Gastro- esophageal reflux disease with esophagitis
[2019-01-23 15:23] LABS: Hemoglobin 8.5 g/dL (12.9-16.9)
[2019-01-24] MEDS: Pantoprazole 40 MG VIAL IVP SCH (06:32)
[2019-01-24 06:35] LABS: Hematocrit 27.1 % (37.5-50.1); Hemoglobin 8.4 g/dL (12.9-16.9); Mean Corpuscular Hemoglobin 30.9 pg (28.0-33.3); Mean Corpuscular Volume 99.6 fL (83.0-100.0); Mean Platelet Volume 9.9 fL (9.4-12.4); Platelet Count 146 K/mcL (140-400); Red Blood Count 2.72 M/mcL (4.19-5.50); Red Cell Distribution Width 17.2 % (11.5-14.5); White Blood Count 3.4 K/mcL (4.3-11.1)
[2019-01-24] MEDS ORDERED: *HR* Midazolam HCl 5 MG/5 ML VIAL IVP ONE ×2 (07:11→07:12)
[2019-01-24] MEDS ORDERED: *HR* FentaNYL (PF) 100 MCG/2 ML VIAL ONE (07:11)
[2019-01-24] MEDS ORDERED: *HR* FentaNYL (PF) 100 MCG/2 ML VIAL IVP ONE (07:12)
[2019-01-24] MEDS ORDERED: Simethicone 40 MG/0.6 ML MLS IR ONE (07:12)
[2019-01-24] MEDS ORDERED: Tetracaine/Benzocaine/Butamben 1 SPRAY AEROSOL MM ONE (07:12)
--- NOTE | 2019-01-24 07:14 | Pre-Sedation Evaluation ---
Pre-sedation evaluation - Pre-sedation checklist Date of procedure: 01/24/19 Procedure: EGD/Colonoscopy Recent Vitals: Last Vital Signs Temp 97.9 F 01/24/19 06:45 Pulse 72 01/24/19 06:45 Resp 16 01/24/19 06:45 BP 154/67 01/24/19 06:45 Pulse Ox 99 01/24/19 06:45 H&P (including ROS) documented in medical record: Yes Previous reaction to sedatives/anesthetics: No Dietary Status: NPO after Midnight Airway Assessment: Patient can open mouth completely, TMJ function normal Dentition: dentures removed Possible difficult airway: No ASA Classification *see protocol: CLASS III-Severe systemic disease
[2019-01-24] MEDS ORDERED: 0.9 % Sodium Chloride 1,000 ML IVC SCH (07:15)
--- NOTE | 2019-01-24 07:53 | Event Note ---
Date of Encounter: 01/24/19 Time of Encounter: 07:51 EGD findings: 1. Long segment Huggins's, biopsied 2. Small hiatal hernia 3. Mild AVMs, body of stomach, status post cauterization. No active bleeding or blood noted in the stomach. 4, duodenum normal Colonoscopy findings: 1, no blood in the colon, small polyp, removed with hot forceps, hepatic flexure. 2. Moderate internal hemorrhoids. Will advance diet, ok for DC from my standpoint. Continue PPI, no antiplatelet agents, iron therapy.
--- NOTE | 2019-01-24 08:07 | Internal Medicine Consult Note ---
Date of Encounter: 01/24/19 Time of Encounter: 08:05 - Assessment and Plan (1) Anemia Current Visit: Yes Status: Acute Assessment and plan: No active bleeding in GI tract at this time.. am not convinced there was ongoing GI bleeding at this time. No further anti-platelet agents, cont. PPI and started oral Iron. Can be discharged today from my standpoint. Qualifiers: Anemia type: unspecified type Qualified Code(s): D64.9 - Anemia, unspecified (2) ESRD (end stage renal disease) on dialysis Current Visit: Yes Status: Chronic (3) GERD (gastroesophageal reflux disease) Current Visit: No Status: Chronic Qualifiers: Esophagitis presence: with esophagitis Qualified Code(s): K21.0 - Gastro- esophageal reflux disease with esophagitis (4) Hypertension Current Visit: No Status: Chronic Qualifiers: Hypertension type: essential hypertension Qualified Code(s): I10 - Essential (primary) hypertension (5) Ischemic heart disease Current Visit: Yes Status: Chronic (6) 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 Cautery and destruction were c omplete. Internal Medicine - CN: HPI - Data of Consult Requesting Physician: Cesar Juarez - Consult Narrative History of present illness: Mr. Adair is a 73 year old male Past Med Surg Social Fam HX - Past Medical History Medical history: dialysis, GERD, hypertension Additional medical history: To include recent diagnosis of gastritis, and esophagitis. Psychiatric history: no psych history - Past Surgical History Additional surgical history: No reported other than left AV fistula - Social History Smoking Status: Former smoker Smokeless Tobacco Status: No Alcohol use: none Drug use: none - Family History Mother Hx Family Cancer: Yes Hx Family Endocrine Disorder: Yes Sister Hx Family Cardiac Disorders: Yes Hx Family Endocrine Disorder: Yes Internal Medicine - CN: Meds Calcium Acetate [Phos-LO] 667 mg PO TIDWM 12/25/18 [History] Carvedilol [Coreg] 6.25 mg PO BIDWM 12/25/18 [History] Clopidogrel [Plavix] 75 mg PO DAILY 12/25/18 [History] Lisinopril [Zestril] 20 mg PO DAILY 12/25/18 [History] Nitroglycerin [Nitrostat] 0.4 mg SL Q5M PRN MDD [id number] CALL 911 12/25/18 [History] Ondansetron HCl [Zofran] 4 mg PO Q4-6H PRN 12/25/18 [History] Simvastatin [Zocor] 40 mg PO QPM 12/25/18 [History] Aspirin Enteric Coated [Aspirin EC] 81 mg PO DAILY 01/23/19 [History] Cholecalciferol (Vitamin D3) [Vitamin D3] 50,000 unit PO [place] 01/23/19 [History] Ondansetron HCl 4 mg PO TID 01/23/19 [History] Pantoprazole Sodium [Protonix] 20 mg PO BID 01/23/19 [History] Sucralfate [Carafate] 1 gm PO QIDAC 01/23/19 [History] Allergy/AdvReac Type Severity Reaction Status Date / Time No Known Allergies Allergy Verified 01/23/19 11:41 Internal Med - CN: Exam - Constitutional Vitals: Temp Pulse Resp BP Pulse Ox 97.9 F 72 16 127/84 100 01/24/19 06:45 01/24/19 07:35 01/24/19 07:35 01/24/19 07:35 01/24/19 07:35 Internal Medicine - CN: Reslt - Labs CBC & Chem 7: 01/24/19 06:15 01/23/19 04:10 Labs: Short CBC 01/23/19 01/23/19 01/24/19 Range/Units 08:04 14:27 06:15 WBC 3.4 L (4.3-11.1) K/mcL Hgb 8.0 L 8.5 L 8.4 L (12.9-16.9) g/dL Hct 25.6 L 27.0 L 27.1 L (37.5-50.1) % Plt Count 146 (140-400) K/mcL - ABG Interpretation ABG results: PT/INR, D-dimer PT 12.4 Seconds (9.4-12.1) H 01/22/19 10:52 Consult Discharge Plan - Plan Referrals: Nani Calvillo, [employer] [Primary Care Provider] -
[2019-01-24] MEDS ORDERED: 0.9 % Sodium Chloride 250 ML IVC PRN (08:27)
[2019-01-24 08:58] LABS: Calcium 8.7 mg/dL (8.6-10.3)
[2019-01-24] MEDS: Calcium Acetate 667 MG CAPSULE PO SCH ×3 (09:35→16:40)
[2019-01-24] MEDS: Lisinopril 20 MG TABLET PO SCH (14:14)
--- NOTE | 2019-01-24 15:03 | Nephrology Progress Note ---
Date of Encounter: 01/24/19 Time of Encounter: 12:00 - Assessment and Plan (1) ESRD (end stage renal disease) on dialysis Current Visit: Yes Status: Chronic Continue Hd with HD as tolerated Lytes stable Continue fluid restriction Continue renal diet (2) Acute blood loss anemia Current Visit: Yes Status: Acute Hgb 8.4, fairly stable after transfusion pRBCs. Transfusion parameters per primary. (3) GI bleed Current Visit: Yes Status: Acute Per primary. Qualifiers: GI bleed type/associated pathology: melena Qualified Code(s): K92.1 - Melena Subjective Principal diagnosis: low hgb Interval history: interim noted, admitted with GIB, pt seen and examined on HD very frustrated about long hospital stay and wants to go home Objective - Vital Signs Vital signs: Vital Signs Temp Pulse Resp BP Pulse Ox 01/24/19 14:07 84 138/56 01/24/19 09:42 100 01/24/19 09:40 97.8 F 15 156/80 01/24/19 07:35 72 16 127/84 100 01/24/19 07:30 73 16 135/79 98 01/24/19 07:25 72 16 128/58 98 01/24/19 07:20 76 16 143/63 98 01/24/19 07:15 79 16 172/79 100 01/24/19 06:45 97.9 F 72 16 154/67 99 01/24/19 04:12 97.7 F 69 16 140/61 99 01/23/19 23:31 98.1 F 71 16 136/39 96 01/23/19 19:06 98.9 F 76 16 109/61 92 01/23/19 15:11 97.9 F 80 16 128/62 98 Intake and Output 01/23/19 01/24/19 01/24/19 23:59 07:59 15:59 Intake Total 500 / 500 Output Total 0 / 200 0 / 0 0 / 0 Balance 0 / -200 0 / 500 500 / 500 Intake: Oral 0 / 0 Intake, Rinseback and Flushes 500 / 500 Output: Urine 0 / 200 0 / 0 0 / 0 Other: Weight 74.8 kg Hemodialysis Net Fluid Removed 0 (mL) - General Appearance General appearance: Present: chronically ill (NAD) EENT: Present: ATNC, mucous membranes moist Neck: Present: no JVD, supple Respiratory: Present: clear (ant bilat) Cardiology: Present: no edema, normal S1, normal S2 Dialysis Vascular Access: Arteriovenous Fistula thrill: Yes bruit: Yes Gastrointestinal: Present: no tenderness, no guarding Integumentary: Present: warm and dry Neurologic: Present: no focal deficit Musculoskeletal: Present: no deformities Psychiatric: Present: mood/affect appropriate, cooperative - Lab 01/24/19 06:15 01/24/19 06:15 Most recent lab results 01/24/19 06:15 Calcium 8.7 Consult Discharge Plan - Plan Referrals: Nani Calvillo, [employer] [Primary Care Provider] -
--- NOTE | 2019-01-24 17:01 | Internal Med Progress Note ---
Hospitalist Progress Note - Encounter Date of Encounter: 01/24/19 Time of Encounter: 14:25 - Subjective Interval History: Patient seen at bedside. Fairly normal. Denies any abdominal pain. Denies melena, nausea, vomiting, hematemesis. Got endoscopy and colonoscopy today. - Exam Vitals: Temp Pulse Resp BP Pulse Ox 98.5 F 81 16 146/62 96 01/24/19 16:00 01/24/19 16:00 01/24/19 16:00 01/24/19 16:00 01/24/19 16:00 Exam: General: Alert and oriented, no physical distress, able to follow commands. HEENT: No thyromegaly, no lymphadenopathy, no discharge. Eyes: No discharge. Respiratory: Normal vesicular breathing, no added sounds, breathing equal in both sides. CVS: Normal heart sounds, no murmurs, no edema. Extremities: No peripheral edema, peripheral pulses intact. Lymph nodes: No lymphadenopathy Gastrointestinal: Soft, nontender abdomen, normal abdominal sounds. No distention noted. Genitourinary: No paravertebral tenderness. Neurological: Alert and oriented. No focal deficits. Cranial nerves II-XII intact. - Assessment and Plan (1) Acute blood loss anemia Current Visit: Yes Status: Acute Assessment and Plan: Patient presented with a hemoglobin of 5.5 and FOBT was positive. Currently, patient hemoglobin is around 8. Hemoglobin has been stable. GI on board. Patient got the endoscopy and colonoscopy today. will repeat CBC tomorrow morning. Counseled the patient to report tothe nurse, if the patient notices any melena, blood in stools, dizziness, chest pain or shortness of breath. Patient is on clear liquid diet. Hold off on the antiplatelet. Continue Protonix. (2) GI bleed Current Visit: Yes Status: Acute Assessment and Plan: Likely etiology for the acute blood loss anemia is GI bleed. Patient brought the endoscopy today which showed small E [facility] with no bleeding in the gastric body. Cognition for tissue destruction was done by GI. Currently the patient is on PPI. Hemodynamically stable, no active bleeding. Patient hemoglobin has been stable. If continues to remain stable, consider discharge tomorrow. (3) Hypertension Current Visit: No Status: Chronic Assessment and Plan: Blood pressure has been stable. Continue the home medications. (4) GERD (gastroesophageal reflux disease) Current Visit: No Status: Chronic Assessment and Plan: Continue Protonix (5) Anemia Current Visit: Yes Status: Acute Assessment and Plan: Etiology blood loss superimposed on anemia due to chronic kidney disease Outpatient management for the anemia of chronic kidney disease. Management of the acute blood loss anemia mentioned above. (6) ESRD (end stage renal disease) on dialysis Current Visit: Yes Status: Chronic Assessment and Plan: ESRD on hemodialysis. Nephrology consulted for the plan for the in patient hemodialysis (7) Ischemic heart disease Current Visit: Yes Status: Chronic Assessment and Plan: History of CAD with remote history of stent placement, currently on aspirin and Plavix. Continue MAKEDA inhibitor, atorvastatin, beta eliseo. Hold aspirin and Plavix for now because of the GI bleed. Can be resumed at discharge. (8) Arteriovenous malformation of stomach Current Visit: Yes Status: Acute Assessment and Plan: Diagnosed in endoscopy. Plan as mentioned above. - Time Spent with Patient Total time spent is greater than 50% in coordination of care (as documented) at patient's floor/unit and/or counseling patient: Internal Medicine: Result - Labs CBC & Chem 7: 01/24/19 06:15 01/24/19 06:15 Labs: Short CBC 01/24/19 Range/Units 06:15 WBC 3.4 L (4.3-11.1) K/mcL Hgb 8.4 L (12.9-16.9) g/dL Hct 27.1 L (37.5-50.1) % Plt Count 146 (140-400) K/mcL BMP 01/24/19 06:15 Sodium 137 Potassium 4.0 Chloride 105 Carbon Dioxide 23 BUN 19 Creatinine 2.92 H Glucose 88 Calcium 8.7 - ABG Interpretation ABG results: PT/INR, D-dimer PT 12.4 Seconds (9.4-12.1) H 01/22/19 10:52 Consult Discharge Plan - Plan Referrals: Nani Calvillo, J[employer]IOR PROJECT COORDINATOR [Primary Care Provider] - (2) GI bleed Qualifiers: GI bleed type/associated pathology: melena Qualified Code(s): K92.1 - Melena (3) Hypertension Qualifiers: Hypertension type: essential hypertension Qualified Code(s): I10 - Essential (primary) hypertension (4) GERD (gastroesophageal reflux disease) Qualifiers: Esophagitis presence: with esophagitis Qualified Code(s): K21.0 - Gastro- esophageal reflux disease with esophagitis (5) Anemia Qualifiers: Anemia type: unspecified type Qualified Code(s): D64.9 - Anemia, unspecified
[2019-01-25 01:52] LABS: Eosinophils # 0.1 K/mcL (0.0-0.6); Eosinophils % 1.1 %; Hematocrit 26.2 % (37.5-50.1); Hemoglobin 8.3 g/dL (12.9-16.9); Immature Granulocytes % 0.6 % (0-4); Lymphocytes # 0.7 K/mcL (0.6-4.6); Lymphocytes % 11.4 %; Mean Corpuscular HGB Conc 31.7 g/dL (31.6-35.5); Mean Corpuscular Volume 97.8 fL (83.0-100.0); Mean Platelet Volume 10.9 fL (9.4-12.4); Monocytes # 0.7 K/mcL (0.0-1.3); Monocytes % 10.3 %; Neutrophils # 4.9 K/mcL (1.6-8.9); Platelet Count 145 K/mcL (140-400); Red Blood Count 2.68 M/mcL (4.19-5.50); Red Cell Distribution Width 16.2 % (11.5-14.5); Segmented Neutrophils % 76.6 %
[2019-01-25 01:55] LABS: White Blood Count 6.4 K/mcL (4.3-11.1)
[2019-01-25 02:35] LABS: Calcium 8.4 mg/dL (8.6-10.3); Potassium 3.5 mEq/L (3.5-5.1)
[2019-01-25] MEDS: Lisinopril 20 MG TABLET PO SCH (08:05)
[2019-01-25] MEDS: Calcium Acetate 667 MG CAPSULE PO SCH ×2 (08:06→12:12)
--- NOTE | 2019-01-25 10:42 | Discharge Summary ---
- NOTES TO OUTPATIENT PROVIDER Notes to Outpatient Provider: Came with the GI bleed. As per GI recomemndations, aspirin and plavix are stopped. Please reinitiate once stable for the next feww days. Orders not resulted at time of discharge: Pending orders 01/24/19 07:31 Surgical Pathology [PTH] Routine 01/26/19 04:00 Basic Metabolic Panel AM 0400 CBC no Diff [Complete Blood Count w/o Diff] [HEME] AM 0400 01/27/19 04:00 Basic Metabolic Panel AM 0400 CBC no Diff [Complete Blood Count w/o Diff] [HEME] AM 0400 Date of Encounter: 01/25/19 Time of Encounter: 08:45 - Discharge Diagnosis (1) Acute blood loss anemia Priority: Secondary Status: Acute (2) GI bleed Priority: Primary Status: Acute Qualifiers: GI bleed type/associated pathology: melena Qualified Code(s): K92.1 - Melena (3) Hypertension Priority: Secondary Status: Chronic Qualifiers: Hypertension type: essential hypertension Qualified Code(s): I10 - Essential (primary) hypertension (4) GERD (gastroesophageal reflux disease) Priority: Secondary Status: Chronic Qualifiers: Esophagitis presence: with esophagitis Qualified Code(s): K21.0 - Gastro- esophageal reflux disease with esophagitis (5) Anemia Priority: Secondary Status: Acute Qualifiers: Anemia type: unspecified type Qualified Code(s): D64.9 - Anemia, unspecified (6) ESRD (end stage renal disease) on dialysis Priority: Secondary Status: Chronic (7) Ischemic heart disease Priority: Secondary Status: Chronic (8) Arteriovenous malformation of stomach Priority: Secondary Status: Acute Hospital course: Mr. Adair is a 73 year old male with a past medical history significant for ESRD on hemodialysis, presented to the emergency department because of the acute anemia. Patient was suspected to have acute GI bleed because the patient was having a melena. Patient was given 2 units of packed RBCs and the patient hemoglobin improved. GI was consulted and took the patient to endoscopy and colonoscopy yesterday. Both of the above interventions failed to reveal any active source of bleeding. Colonoscopy revealed a polyp which was taken for the biopsy. Endoscopy reveals some angioectasias, but failed to reveal any episodes of bleeding. GI recommended to stop the Depakote therapy. Considering the patient cardiac risk factors, it is reasonable for the patient to be at least on aspirin. Patient had a stent put in a few years back. Patient at least factors for the cardiac disease and he should be on at least one of antiplatelets. Discussed with the patient to discuss the plan of care with his PCP. Of note, patient hemoglobin has been stable while he was in the hospital. Patient was understanding. Patient is being discharged in stable condition. - Time Spent with Patient Total time spent providing and/or coordinating discharge services: 43 mins - Discharge Medications Prescriptions: New Ferrous Sulfate 325 mg PO BIDWM tablet Aspirin Enteric Coated [Aspirin EC] 81 mg PO DAILY 90 Days tablet.dr Continued Simvastatin [Zocor] 40 mg PO QPM Nitroglycerin [Nitrostat] 0.4 mg SL Q5M PRN MDD [id number] CALL 911 PRN Reason: Chest Pain Lisinopril [Zestril] 20 mg PO DAILY Carvedilol [Coreg] 6.25 mg PO BIDWM Calcium Acetate [Phos-LO] 667 mg PO TIDWM Cholecalciferol (Vitamin D3) [Vitamin D3] 50,000 unit PO [place] Ondansetron HCl 4 mg PO TID Pantoprazole Sodium [Protonix] 20 mg PO BID Sucralfate [Carafate] 1 gm PO QIDAC Discontinued Ondansetron HCl [Zofran] 4 mg PO Q4-6H PRN PRN Reason: Nausea And Vomiting Clopidogrel [Plavix] 75 mg PO DAILY Aspirin Enteric Coated [Aspirin EC] 81 mg PO DAILY Home Medications: Calcium Acetate [Phos-LO] 667 mg PO TIDWM 12/25/18 [History] Carvedilol [Coreg] 6.25 mg PO BIDWM 12/25/18 [History] Lisinopril [Zestril] 20 mg PO DAILY 12/25/18 [History] Nitroglycerin [Nitrostat] 0.4 mg SL Q5M PRN MDD [id number] CALL 911 12/25/18 [History] Simvastatin [Zocor] 40 mg PO QPM 12/25/18 [History] Cholecalciferol (Vitamin D3) [Vitamin D3] 50,000 unit PO [place] 01/23/19 [History] Ondansetron HCl 4 mg PO TID 01/23/19 [History] Pantoprazole Sodium [Protonix] 20 mg PO BID 01/23/19 [History] Sucralfate [Carafate] 1 gm PO QIDAC 01/23/19 [History] Aspirin Enteric Coated [Aspirin EC] 81 mg PO DAILY 90 Days tablet. 01/25/19 [Rx] Ferrous Sulfate 325 mg PO BIDWM tablet 01/25/19 [Rx] Allergies/Adverse Reactions: Allergy/AdvReac Type Severity Reaction Status Date / Time No Known Allergies Allergy Verified 01/23/19 11:41 Date of admission: 01/22/19 13:41 Primary care physician: Nani Calvillo CNP Consults: 01/22/19 13:39 Consult to Nephrology [CONS] Routine Consulting Provider: Kidney Saundra/NELLY/[place]NE/[place] Reason for Consult: ESRD on HD Call Completed: Yes 01/22/19 14:45 Consult to Dialysis [CONS] ONCE 01/22/19 16:09 Consult to Physician [CONS] Routine Consulting Provider: Chicho Villatoro Reason for Consult: GIB, known gastric ulcer Call Completed: Yes 01/24/19 08:30 Consult to Dialysis [CONS] ONCE - Constitutional Vitals: Temp Pulse Resp BP Pulse Ox 98.6 F 79 16 142/66 98 01/25/19 07:23 01/25/19 07:23 01/25/19 07:23 01/25/19 07:23 01/25/19 07:23 General appearance: Present: cachectic, A&O X 2, pleasant, no acute distress. Absent: answers questions appropriately Exam: General: Alert and oriented, no physical distress, able to follow commands. HEENT: No thyromegaly, no lymphadenopathy, no discharge. Eyes: No discharge. Respiratory: Normal vesicular breathing, no added sounds, breathing equal in both sides. CVS: Normal heart sounds, no murmurs, no edema. Extremities: No peripheral edema, peripheral pulses intact. Lymph nodes: No lymphadenopathy Gastrointestinal: Soft, nontender abdomen, normal abdominal sounds. No distention noted. Genitourinary: No paravertebral tenderness. Neurological: Alert and oriented. No focal deficits. Cranial nerves II-XII intact. - Patient Status Disposition: Home, Self-Care Condition: Fair Functional capacity at discharge: independent ambulation Overall status at discharge: patient is back to baseline - Discharge Instructions Instructions: Anemia (GEN) Follow Up With: Nani Calvillo CNP [Primary Care Provider] - - Diet and Activity Activity: increase activity as tolerated Diet: advance to your usual diet
[2019-01-25 12:12] VITALS: BP 141/105
== END 2019-01-25 12:36 | disposition home or self-care (01) ==
LOC: EMEROOARM 10:16 → 2ANU 13:41 → INTOOBSV 13:41 → SUATTDRO 13:41 → 2ANU 14:07
PROVIDERS: ADMIT Internal Medicine; ATTEND Internal Medicine

== ENCOUNTER 2021-08-15 10:03 | Observation (INO) ==
[2021-08-15 10:40] LABS: Basophils % 0.4 %; Eosinophils # 0.1 K/mcL (0.0-0.6); Eosinophils % 1.6 %; Hematocrit 35.8 % (37.5-50.1); Hemoglobin 11.8 g/dL (12.9-16.9); Immature Granulocytes % 0.7 % (0-4); Lymphocytes # 0.7 K/mcL (0.6-4.6); Lymphocytes % 9.1 %; Mean Corpuscular Hemoglobin 29.9 pg (28.0-33.3); Mean Corpuscular Volume 90.6 fL (83.0-100.0); Mean Platelet Volume 11.1 fL (9.4-12.4); Monocytes # 0.4 K/mcL (0.0-1.3); Neutrophils # 6.1 K/mcL (1.6-8.9); Platelet Count 135 K/mcL (140-400); Red Blood Count 3.95 M/mcL (4.19-5.50); Red Cell Distribution Width 12.8 % (11.5-14.5); Segmented Neutrophils % 82.2 %; White Blood Count 7.4 K/mcL (4.3-11.1)
[2021-08-15] MEDS ORDERED: *HR* Labetalol 20 MG/4 ML SYRINGE IVP PRN (10:43)
[2021-08-15 10:48] LABS: INR 1.3; Prothrombin Time 14.2 Seconds (9.4-12.1)
[2021-08-15 10:50] LABS: Activated Partial Thrombo Time 41.6 Seconds (26.0-36.0)
[2021-08-15] MEDS ORDERED: 0.9 % Sodium Chloride 250 ML ONE (12:11)
[2021-08-15 12:46] LABS: Albumin 3.6 g/dL (3.5-5.7); Albumin/Globulin Ratio 1.6 (1.1-2.2); Bilirubin,Total 0.6 mg/dL (0.3-1.0); Calcium 8.6 mg/dL (8.6-10.3); Globulin 2.3 g/dL (2.4-3.5); Potassium 4.1 mEq/L (3.5-5.1); Total Protein 5.9 g/dL (6.4-8.9)
[2021-08-15] MEDS ORDERED: Ondansetron 4 MG/2 ML VIAL IVP PRN (14:26)
[2021-08-15] MEDS ORDERED: Melatonin 3 MG TABLET PO PRN (14:26)
[2021-08-15] MEDS ORDERED: Acetaminophen 325 MG TABLET PO PRN (14:26)
[2021-08-15] MEDS ORDERED: Naloxone 0.4 MG/ML INJ IVP PRN (14:26)
[2021-08-15] MEDS ORDERED: Nitroglycerin 0.4 MG TAB.SUBL SL PRN (18:03)
[2021-08-15] MEDS: carvediloL 6.25 MG TABLET PO SCH (18:48)
[2021-08-15] MEDS: lisinopriL 20 MG TABLET PO SCH (19:38)
[2021-08-15 20:08] LABS: Basophils % 0.5 %; Eosinophils % 0.3 %; Hematocrit 37.3 % (37.5-50.1); Hemoglobin 12.6 g/dL (12.9-16.9); Immature Granulocytes % 0.7 % (0-4); Lymphocytes % 10.9 %; Mean Corpuscular HGB Conc 33.8 g/dL (31.6-35.5); Mean Corpuscular Hemoglobin 30.2 pg (28.0-33.3); Mean Corpuscular Volume 89.4 fL (83.0-100.0); Mean Platelet Volume 11.4 fL (9.4-12.4); Monocytes # 1.3 K/mcL (0.0-1.3); Monocytes % 15.1 %; Neutrophils # 6.4 K/mcL (1.6-8.9); Platelet Count 149 K/mcL (140-400); Red Blood Count 4.17 M/mcL (4.19-5.50); Red Cell Distribution Width 12.7 % (11.5-14.5); Segmented Neutrophils % 72.5 %; White Blood Count 8.8 K/mcL (4.3-11.1)
[2021-08-16 01:33] LABS: Basophils % 0.5 %; Eosinophils % 0.8 %; Hematocrit 35.1 % (37.5-50.1); Hemoglobin 11.8 g/dL (12.9-16.9); Lymphocytes % 17.4 %; Red Cell Distribution Width 12.7 % (11.5-14.5)
[2021-08-16 01:35] LABS: Eosinophils # 0.1 K/mcL (0.0-0.6); Hematocrit 34.4 % (37.5-50.1); Immature Granulocytes % 0.8 % (0-4); Immature Platelets 6.7 % (1.1-6.1); Lymphocytes # 1.5 K/mcL (0.6-4.6); Mean Corpuscular HGB Conc 34.3 g/dL (31.6-35.5); Mean Corpuscular Hemoglobin 30.5 pg (28.0-33.3); Mean Corpuscular Volume 88.9 fL (83.0-100.0); Mean Platelet Volume 10.9 fL (9.4-12.4); Monocytes # 1.4 K/mcL (0.0-1.3); Monocytes % 16.4 %; Neutrophils # 5.4 K/mcL (1.6-8.9); Platelet Count 143 K/mcL (140-400); Red Blood Count 3.87 M/mcL (4.19-5.50); Segmented Neutrophils % 64.1 %; White Blood Count 8.4 K/mcL (4.3-11.1)
[2021-08-16 01:51] LABS: Calcium 8.7 mg/dL (8.6-10.3); Magnesium 1.9 mg/dL (1.6-2.6); Potassium 4.1 mEq/L (3.5-5.1)
[2021-08-16 06:41] LABS: Hematocrit 34.3 % (37.5-50.1); Hemoglobin 11.9 g/dL (12.9-16.9)
[2021-08-16] MEDS: lisinopriL 20 MG TABLET PO SCH ×2 (07:48→21:13)
[2021-08-16] MEDS: carvediloL 6.25 MG TABLET PO SCH ×2 (07:48→16:26)
[2021-08-16] MEDS: Calcium Acetate 667 MG CAPSULE PO SCH ×2 (07:48→16:26)
[2021-08-16 12:47] LABS: Hematocrit 32.9 % (37.5-50.1); Hemoglobin 11.4 g/dL (12.9-16.9)
[2021-08-17 05:36] LABS: Basophils % 0.4 %; Eosinophils # 0.1 K/mcL (0.0-0.6); Eosinophils % 1.7 %; Hematocrit 31.4 % (37.5-50.1); Hemoglobin 10.5 g/dL (12.9-16.9); Immature Granulocytes % 0.8 % (0-4); Lymphocytes # 1.5 K/mcL (0.6-4.6); Lymphocytes % 19.3 %; Mean Corpuscular HGB Conc 33.4 g/dL (31.6-35.5); Mean Corpuscular Hemoglobin 30.1 pg (28.0-33.3); Mean Platelet Volume 11.4 fL (9.4-12.4); Monocytes # 1.1 K/mcL (0.0-1.3); Neutrophils # 4.7 K/mcL (1.6-8.9); Platelet Count 127 K/mcL (140-400); Red Blood Count 3.49 M/mcL (4.19-5.50); Segmented Neutrophils % 62.8 %; White Blood Count 7.5 K/mcL (4.3-11.1)
[2021-08-17 05:44] LABS: Calcium 8.7 mg/dL (8.6-10.3); Potassium 4.4 mEq/L (3.5-5.1)
[2021-08-17] MEDS ORDERED: Heparin 1,000 UNITS/500 mL 500 ML ONE (08:28)
[2021-08-17] MEDS ORDERED: *HR* FentaNYL (PF) 100 MCG/2 ML VIAL IVP ONE (08:30)
[2021-08-17] MEDS ORDERED: 0.9 % Sodium Chloride 500 ML ONE (08:34)
[2021-08-17] MEDS: ceFAZolin 1,000 MG in 0.9 % Sodium Chloride Mini Bag 100 ML IVPB SCH ×2 (08:42→09:32)
[2021-08-17] MEDS ORDERED: *HR* Heparin 5,000 UNIT/ML VIAL ONE (08:47)
[2021-08-17] MEDS: carvediloL 6.25 MG TABLET PO SCH ×2 (09:28→17:36)
[2021-08-17] MEDS: lisinopriL 20 MG TABLET PO SCH (09:28)
[2021-08-17] MEDS: Calcium Acetate 667 MG CAPSULE PO SCH ×2 (09:29→17:37)
[2021-08-17] MEDS ORDERED: *HR* Heparin 10,000 UNIT/10 ML VIAL IV PRN ×2 (09:38)
[2021-08-17] MEDS ORDERED: 0.9 % Sodium Chloride 250 ML IVC PRN (09:38)
[2021-08-17] MEDS ORDERED: 0.9 % Sodium Chloride 1,000 ML PRIME SCH (09:45)
[2021-08-17 09:59] LABS: Hematocrit 32.5 % (37.5-50.1); Hemoglobin 10.6 g/dL (12.9-16.9)
[2021-08-17 11:35] VITALS: PULSE 73; O2SAT 98
[2021-08-17 13:25] LABS: Hepatitis B Surface Antibody 24.08 mIU/mL
[2021-08-17 13:35] LABS: Hepatitis B Surface Antigen Nonreactive (Nonreactive)
[2021-08-17 17:39] VITALS: TEMP 98.1
[2021-08-17 19:10] VITALS: BP 137/73
== END 2021-08-17 19:06 | disposition home or self-care (01) ==
LOC: EMEROOARM 10:03 → 2ANU 10:03 → SUATTDRO 14:12 → 2ANU 15:08
PROVIDERS: ADMIT Internal Medicine; ATTEND Family Medicine
PROC: IRPERMA (2021-08-17 12:00)